=== PATIENT | male | born 1965 | race Caucasian/White ===

== ENCOUNTER → 2017-03-14 | Outpatient (REF) | payer MEDICARE, MEDICAID ==
[2017-03-14 16:27] LABS: ALBUMIN 3.5 GM/DL (3.2-5.2); ALBUMIN/GLOBULIN RATIO 0.73 (1.00-1.93); ALKALINE PHOSPHATASE 96 U/L (45-117); ALT/SGPT 36 U/L (12-78); ANION GAP 8 MEQ/L (8-16); AST/SGOT 30 U/L (15-37); BILIRUBIN,TOTAL 0.5 MG/DL (0.2-1.0); BLOOD UREA NITROGEN 11 MG/DL (7-18); CALCIUM LEVEL 8.9 MG/DL (8.5-10.1); CARBON DIOXIDE LEVEL 28 MEQ/L (21-32); CHLORIDE LEVEL 105 MEQ/L (98-107); CHOLESTEROL LEVEL 177 MG/DL (<200); CREATININE FOR GFR 0.82 MG/DL (0.70-1.30); GLOMERULAR FILTRATION RATE > 60.0 (>56); GLUCOSE, FASTING 85 MG/DL (70-105); POTASSIUM SERUM 3.8 MEQ/L (3.5-5.1); SODIUM LEVEL 141 MEQ/L (136-145); TOTAL PROTEIN 8.3 GM/DL (6.4-8.2); TRIGLYCERIDES LEVEL 163 MG/DL (<150)
[2017-03-14 19:21] LABS: CALCIUM OXALATE CRYSTALS SMALL
[2017-03-18 14:18] LABS: %CD3+CD4+CD8+ 1.8 % (Not Estab.); %CD3+CD4+CD8- 1.5 % (Not Estab.); %CD3+CD4-CD8+ 76.4 % (Not Estab.); %CD3+CD4-CD8- 3.7 % (Not Estab.); ABS CD3+CD4+CD8+ 20 /uL (Not Estab.); ABS CD3+CD4+CD8- 17 /uL (Not Estab.); ABS CD3+CD4-CD8+ 840 /uL (Not Estab.); ABS CD3+CD4-CD8- 41 /uL (Not Estab.); CD4/CD8 NYSDOH RATIO 0.02 (Not Estab.); Eosinophils 5 % (.); HCT 46.8 % (37.5-51.0); HGB 15.4 g/dL (12.6-17.7); Monocytes 14 % (.); Neutrophils 42 % (.); T PALLIDUM ANTIBODIES Positive (Negative); T PALLIDUM IMMUNOBLOT Positive (Negative); WBC 2.8 x10E3/uL (3.4-10.8)
[2017-04-08 07:28] LABS: log10 HIV-1 RNA 6.041
[2017-04-08 07:29] LABS: Genotype Assay SEE SEPARATE REPORT
== END ==
LOC: M SFHCPLAZ 12:59
PROVIDERS: ATTEND Internal Medicine Infectious Disease
DX: B20 Human immunodeficiency virus [HIV] disease (principal); Z13.220 Encounter for screening for lipoid disorders; L40.50 Arthropathic psoriasis, unspecified; F90.9 Attention-deficit hyperactivity disorder, unspecified type; Z72.0 Tobacco use; R60.0 Localized edema; Z79.891 Long term (current) use of opiate analgesic; Z79.899 Other long term (current) drug therapy
CPT/HCPCS: 36415; 80053; 80061; 81001; 86360; 86592; 86780; 87491; 87536; 87591; G0463

== ENCOUNTER → 2017-04-14 | Outpatient (REF) | payer MEDICARE, MEDICAID ==
[~2017-04-14] MED LIST: ACIT1CAP2 PO; ADDE10CA3 PO; ADDE1TAB14 PO; AKWASOL OU; AMLO10TA2 PO; ATOR40TA75 PO; DOXY100T2 PO; ESCI20TA PO; MELO15TA4 PO; PERC7.5T11 PO; PRED10TA2 PO; STRITAB2 PO
== END ==
LOC: M SFHCPLAZ 17:14
PROVIDERS: ATTEND Internal Medicine Infectious Disease
DX: L02.512 Cutaneous abscess of left hand (principal)
CPT/HCPCS: 87070; 87077; 87186; 87205; G0463

== ENCOUNTER → 2017-05-12 | Outpatient (REF) | payer MEDICARE, MEDICAID ==
[2017-05-12 15:50] LABS: ALBUMIN 3.6 GM/DL (3.2-5.2); ALBUMIN/GLOBULIN RATIO 0.78 (1.00-1.93); ALKALINE PHOSPHATASE 84 U/L (45-117); ALT/SGPT 22 U/L (12-78); ANION GAP 4 MEQ/L (8-16); AST/SGOT 21 U/L (15-37); BILIRUBIN,TOTAL 0.9 MG/DL (0.2-1.0); BLOOD UREA NITROGEN 13 MG/DL (7-18); CALCIUM LEVEL 8.8 MG/DL (8.5-10.1); CARBON DIOXIDE LEVEL 31 MEQ/L (21-32); CHLORIDE LEVEL 103 MEQ/L (98-107); CREATININE FOR GFR 0.93 MG/DL (0.70-1.30); GLOMERULAR FILTRATION RATE > 60.0 (>56); GLUCOSE, FASTING 90 MG/DL (70-105); POTASSIUM SERUM 3.9 MEQ/L (3.5-5.1); SODIUM LEVEL 138 MEQ/L (136-145); TOTAL PROTEIN 8.2 GM/DL (6.4-8.2)
[2017-05-14 15:14] LABS: %CD3+CD4+CD8+ 1.5 % (Not Estab.); %CD3+CD4+CD8- 2.2 % (Not Estab.); %CD3+CD4-CD8+ 72.8 % (Not Estab.); %CD3+CD4-CD8- 5.9 % (Not Estab.); ABS CD3+CD4+CD8+ 9 /uL (Not Estab.); ABS CD3+CD4+CD8- 13 /uL (Not Estab.); ABS CD3+CD4-CD8+ 437 /uL (Not Estab.); ABS CD3+CD4-CD8- 35 /uL (Not Estab.); CD4/CD8 NYSDOH RATIO 0.03 (Not Estab.); Eosinophils 6 % (.); HCT 45.1 % (37.5-51.0); HGB 15.4 g/dL (12.6-17.7); Monocytes 12 % (.); Neutrophils 64 % (.); WBC 3.8 x10E3/uL (3.4-10.8)
== END ==
LOC: M SFHCPLAZ 13:40
PROVIDERS: ATTEND Internal Medicine Infectious Disease
DX: B20 Human immunodeficiency virus [HIV] disease (principal)
CPT/HCPCS: 80053; 86360; 87536; G0463

== ENCOUNTER 2017-07-16 12:24 | Inpatient (IN) | payer MEDICAID, MEDICARE ==
[~2017-07-16] VITALS: Ht 182.9 cm; Wt 91.0 kg
--- NOTE | 2017-07-16 13:20 | REP ---
Clinical: Altered mental status. Cerebrovascular accident . Comparison: None . Findings: The ventricles, sulci, and cisterns are normal in position and appearance. Crook-white differentiation is maintained. No acute intracranial hemorrhage, mass/mass effect, pathology or trauma/injury. No evidence for acute infarction. No extra-axial fluid collection. Calvarium is intact. Paranasal sinuses and mastoid air cells are clear. Impression: Normal noncontrast head CT. No evidence for acute intracranial pathology or trauma/injury. Signed by Justin Galloway MD 07/16/2017 01:11 P
--- NOTE | 2017-07-16 13:21 | REP ---
Clinical: Altered mental status. Possible cerebrovascular accident . Comparison: 02/16/2017 . Technique: PA only. Findings: The mediastinum and cardiac silhouette are normal. The lung stoll are clear and without acute consolidation, effusion, or pneumothorax. The skeletal structures are intact and normal. Impression: 1. No acute cardiopulmonary process. Signed by Justin Galloway MD 07/16/2017 01:12 P
[2017-07-16 13:40] LABS: BASO % 0.7 % (0.0-1.0); EOS # 0.3 K/mm3 (0.0-0.50); EOS % 5.8 % (0.0-3.0); LARGE UNSTAINED CELL # 0.1 K/mm3 (0.0-0.4); LARGE UNSTAINED CELL % 2.7 % (0.0-4.0); LYMPH # 0.9 K/mm3 (1.5-4.5); LYMPH % 16.7 % (24.0-44.0); MEAN CORPUSCULAR HEMOGLOBIN 31.4 pg (27.0-33.0); MEAN CORPUSCULAR HGB CONC 34.2 g/dl (32.0-36.5); MEAN CORPUSCULAR VOLUME 91.7 fl (80.0-96.0); MONO # 0.3 K/mm3 (0.0-0.8); MONO % 6.1 % (0.0-5.0); NEUTROPHILS # 3.7 K/mm3 (1.8-7.7); NEUTROPHILS % 67.9 % (36.0-66.0); PLATELET COUNT, AUTOMATED 195 k/mm3 (150-450); RED CELL DISTRIBUTION WIDTH 14.1 % (11.5-14.5); WHITE BLOOD COUNT 5.4 K/mm3 (4.0-10.0)
[2017-07-16 13:47] LABS: INR 1.04
[2017-07-16] MEDS ORDERED: PERC7.5T11 PO (13:48)
[2017-07-16] MEDS ORDERED: ESCI20TA PO (13:48)
[2017-07-16] MEDS ORDERED: ACIT1CAP2 PO (13:48)
[2017-07-16] MEDS ORDERED: STRITAB2 PO (13:48)
[2017-07-16] MEDS ORDERED: ATOR40TA75 PO (13:48)
[2017-07-16] MEDS ORDERED: MELO15TA4 PO (13:48)
[2017-07-16] MEDS ORDERED: ADDE10CA3 PO (13:48)
[2017-07-16] MEDS ORDERED: ADDE1TAB14 PO (13:48)
[2017-07-16 14:04] LABS: ALBUMIN 3.6 GM/DL (3.2-5.2); ALBUMIN/GLOBULIN RATIO 0.63 (1.00-1.93); ALKALINE PHOSPHATASE 86 U/L (45-117); ALT/SGPT 23 U/L (12-78); ANION GAP 9 MEQ/L (8-16); AST/SGOT 13 U/L (15-37); BILIRUBIN,DIRECT 0.2 MG/DL (0.0-0.2); BILIRUBIN,TOTAL 0.7 MG/DL (0.2-1.0); BLOOD UREA NITROGEN 21 MG/DL (7-18); CALCIUM LEVEL 9.1 MG/DL (8.5-10.1); CARBON DIOXIDE LEVEL 31 MEQ/L (21-32); CHLORIDE LEVEL 100 MEQ/L (98-107); CREATININE FOR GFR 0.92 MG/DL (0.70-1.30); GLOMERULAR FILTRATION RATE > 60.0 (>56); GLUCOSE, FASTING 115 MG/DL (70-105); POTASSIUM SERUM 3.5 MEQ/L (3.5-5.1); SODIUM LEVEL 140 MEQ/L (136-145); TOTAL PROTEIN 9.3 GM/DL (6.4-8.2)
[2017-07-16] MEDS ORDERED: ACETAMINOPHEN 325 MG TAB As Ordered ONE (15:22)
[2017-07-16] MEDS ORDERED: ACETAMINOPHEN TAB 650MG DOSE (2X325MG) PO ONE (15:30)
[2017-07-16] MEDS ORDERED: ONDANSETRON 4MG/2ML VIAL (J2405) IV PRN (15:45)
--- NOTE | 2017-07-16 16:36 | HPEPDOC ---
General Date of Admission Jul 16, 2017 at 15:32 Attending Physician: FABBY LEON MD Chief Complaint The patient is a 52-year-old male admitted with a reason for visit of Facial Weakness. Timing/Duration: Day(s) (5) History of Present Illness 52-year-old male with past medical history of psoriatic arthritis, dyslipidemia , depression, and HIV who follows with Dr. Chapa as an outpatient presented to the ER with a chief complaint of weakness of his facial muscles over the last 5 days. The patient states that during this time he has had difficulty moving the muscles on his face. He reports that he has been unable to wrinkle his brow, smile, or close his eyes. He denies any acute complaints of visual blurring, slurring of speech, numbness or tingling in any extremity, weakness in any extremity, or any other acute neurological deficits. The patient does note that he does have exposure to ticks, as he regularly walks his dog through the booth. However, he is denying noting any ticks on his body. In addition, the patient denies any complaints of fevers, chills, chest pain, palpitations, shortness of breath, any new rashes, abdominal pain, or any nausea/vomiting. In the ER, a CT scan of the head revealed no acute findings. The patient's CBC and CMP revealed no acute findings to explain his current clinical presentation. A call was placed to neurology and ID in the ER, and we will obtain an MRI of the brain without followed by with contrast. In addition, Lyme studies have been sent out, and the patient will be empirically started on doxycycline. The patient will be admitted to the hospitalist service for further evaluation and management. Home Medications Scheduled (Stribild [phone] mg) 1 Tab Tab, 1 TAB PO DAILY, (Reported) (Acitretin) 25 Mg Cap, 50 MG PO DAILY, (Reported) Amphetamine/Dextroamphetamine (Adderall Xr 10 mg) 1 Cap Cap, 1 CAP PO DAILY, ( Reported) PT STATES, TAKES WITH 10MG TAB QAM, UNABLE TO VERIFY WITH PHARMACY Amphetamine/Dextroamphetamine (Adderall 5 mg) 1 Tab Tab, 10 MG PO DAILY, ( Reported) PT STATES, TAKES WITH XR 10MG QAM, UNABLE TO VERIFY WITH PHARMACY Atorvastatin Calcium (Atorvastatin Calcium) 40 Mg Tab, 40 MG PO DAILY, (Reported ) Escitalopram Oxalate (Escitalopram Oxalate) 20 Mg Tab, 20 MG PO DAILY, (Reported ) Meloxicam (Meloxicam) 15 Mg Tab, 15 MG PO DAILY, (Reported) Scheduled PRN Oxycodone/Acetaminophen (Percocet 7.5-325 mg) 1 Tab Tab, 1 TAB PO Q6H PRN for PAIN, (Reported) Allergies Coded Allergies: Penicillins (Verified Allergy, Severe, DIFFICULTY BREATHING, 07/16/17) Penicillins Cross Reactors (Verified Allergy, Severe, DIFFICULTY BREATHING , 07/16/17) Past Medical History Medical History As noted in HPI. Surgical History LEFT THUMB SURGERY FOR HER PSORIASIS AND ARTHROPATHY WITH DISLOCATION FIFTH TOE SURGERY BILATERALLY HE HAD ABOUT 5 SURGERIES IN THE PAST YEAR 2008 I&D OF RIGHT ARM ABSCESS 2003 L5-S1 LAMINECTOMY FOR LARGE DISC HERNIATION DR ALEX 06/29/2011 LEFT TOE AND RT THUMB FUSION 2013 RIGHT THUMB ARTHRODESIS 11/12/2014 Obtained from outpatient charting Family History Significant Family History: No pertinent family hx Social History * Smoker: former Smoker Alcohol: Denies Drugs: denies Review of Symptoms Other systems 10 point review of systems negative unless otherwise specified in HPI. Physical Examination General Exam: Positive: Alert, Cooperative, No Acute Distress Eye Exam: Positive: PERRLA, EOMI, Negative: Sclera icteric, Ptosis ENT Exam: Positive: Atraumatic, Mucous membr. moist/pink Neck Exam: Negative: JVD Chest Exam: Positive: Clear to auscultation, Normal air movement Heart Exam: Positive: Rate Normal, Normal S1, Normal S2 Abdomen Exam: Positive: Soft, Negative: Tenderness Extremity Exam: Negative: Tenderness, Swelling Neuro Exam: Positive: Normal Speech, Strength at 5/5 X4 ext, Sensation Intact, Other (facial muscle weakness, patient unable to close eyes, wrinkle brow, or smile/frown) Psych Exam: Positive: Oriented x 3 Vital Signs Vital Signs Date Time Temp Pulse Resp B/P (MAP) Pulse Ox O2 Delivery O2 Flow Rate FiO2 07/16/17 15:00 162/106 (124) 07/16/17 14:09 92 94 07/16/17 12:24 98.5 16 Room Air Laboratory Data Labs 24H Laboratory Tests 2 07/16/17 13:21: White Blood Count 5.4, Red Blood Count 5.70, Hemoglobin 17.9, Hematocrit 52.3H, Mean Corpuscular Volume 91.7, Mean Corpuscular Hemoglobin 31.4, Mean Corpuscular Hemoglobin Concent 34.2, Red Cell Distribution Width 14.1, Platelet Count 195, Neutrophils (%) (Auto) 67.9H, Lymphocytes (%) (Auto) 16.7L, Monocytes (%) (Auto) 6.1H, Eosinophils (%) (Auto) 5.8H, Basophils (%) (Auto) 0.7 , Neutrophils # (Auto) 3.7, Lymphocytes # (Auto) 0.9L, Monocytes # (Auto) 0.3, Eosinophils # (Auto) 0.3, Basophils # (Auto) 0.0, Large Unclassified Cells % 2.7 , Large Unclassified Cells # 0.1, Prothrombin Time 13.7, Prothromb Time International Ratio 1.04, Activated Partial Thromboplast Time 26.9, Anion Gap 9 , Glomerular Filtration Rate > 60.0, Lactic Acid Level 1.2, Calcium Level 9.1, Aspartate Amino Transf (AST/SGOT) 13L, Alanine Aminotransferase (ALT/SGPT) 23, Alkaline Phosphatase 86, Total Bilirubin 0.7, Direct Bilirubin 0.2, Total Creatine Kinase 17L, Creatine Kinase MB 1.0, Creatine Kinase MB Relative Index 5.88H, Troponin I < 0.02, Total Protein 9.3H, Albumin 3.6, Albumin/Globulin Ratio 0.63L, Lipase 193 07/16/17 14:47: Urine Appearance HAZY, Urine Color PHILLIP, Urine pH 5.0, Urine Specific [place] 1.021, Urine Protein NEGATIVE, Urine Glucose (UA) NEGATIVE, Urine Ketones NEGATIVE, Urine Urobilinogen 0.2, Urine Bilirubin NEGATIVE, Urine Leukocyte Esterase NEGATIVE, Urine Blood NEGATIVE, Urine Nitrite NEGATIVE, Urine WBC (Auto ) 3, Urine RBC (Auto) 4H, Urine Hyaline Casts (Auto) 2, Urine Bacteria (Auto) NEGATIVE, Urine Squamous Epithelial Cells 0, Urine Mucus (Auto) LARGE, Urine Sperm (Auto) CBC/BMP Laboratory Tests 07/16/17 13:21 Red Blood Count 5.70, Mean Corpuscular Volume 91.7, Mean Corpuscular Hemoglobin 31.4, Mean Corpuscular Hemoglobin Concent 34.2, Red Cell Distribution Width 14.1 , Neutrophils (%) (Auto) 67.9 H, Lymphocytes (%) (Auto) 16.7 L, Monocytes (%) ( Auto) 6.1 H, Eosinophils (%) (Auto) 5.8 H, Basophils (%) (Auto) 0.7, Neutrophils # (Auto) 3.7, Lymphocytes # (Auto) 0.9 L, Monocytes # (Auto) 0.3, Eosinophils # (Auto) 0.3, Basophils # (Auto) 0.0 Microbiology Microbiology 07/16/17 Blood Culture, Received Pending 07/16/17 Urine Culture, Received Pending Plan / VTE VTE Prophylaxis Ordered?: Yes Plan Plan Facial Muscle Weakness possibly 2/2 Lyme's Disease vs Underlying CMV in patient with Hx of HIV CT Scan of the Head with no acute findings MRI w/o followed by with Contrast ordered to delineate other possible causes Neuro and ID input in the ER appreciated Lyme study sent--we will empirically start treatment with Doxycycline BID No other acute focal neurological abnormalities appreciated Cont Neuro-checks Hx of HIV Cont current regimen follows with Dr. Chapa of ID as an outpatient Dyslipidemia Continue statin Depression/anxiety Continue Lexapro History of psoriatic arthritis Continue meloxicam DVT prophylaxis Lovenox SC The patient will be admitted to the service of Dr. Leon, who will begin to follow the patient on 07/17/17 at 7 AM. JIMENA ALFRED MD Jul 16, 2017 16:36
[2017-07-16 17:47] VITALS: BP 138/88
[2017-07-16] MEDS: ESCITALOPRAM OXALATE 10 MG TAB (LEXAPRO) PO SCH (18:41)
[2017-07-16] MEDS ORDERED: BISACODYL 5 MG TAB PO PRN (20:00)
[2017-07-16] MEDS: MELOXICAM (MOBIC) 7.5 MG TAB PO SCH (20:19)
[2017-07-16] MEDS: DOXYCYCLINE HYCLATE 100 MG TAB PO SCH (20:19)
[2017-07-16] MEDS: ENOXAPARIN 40 MG/0.4 ML SYRINGE (J1650) SC SCH (20:20)
[2017-07-16 20:25] VITALS: BP 119/79
[2017-07-16] MEDS: PERCOCET 5MG/325MG TAB PO PRN (21:50)
[2017-07-17] VITALS (7 sets, daily range): BP systolic 130–190; BP diastolic 89–120
[2017-07-17] MEDS: ACETAMINOPHEN TAB 650MG DOSE (2X325MG) PO PRN ×2 (00:35→10:36)
[2017-07-17] MEDS: PERCOCET 5MG/325MG TAB PO PRN ×4 (02:02→18:45)
[2017-07-17 06:41] LABS: BASO % 0.4 % (0.0-1.0); EOS # 0.3 K/mm3 (0.0-0.50); EOS % 4.7 % (0.0-3.0); LARGE UNSTAINED CELL # 0.1 K/mm3 (0.0-0.4); LARGE UNSTAINED CELL % 2.3 % (0.0-4.0); LYMPH # 1.3 K/mm3 (1.5-4.5); LYMPH % 22.4 % (24.0-44.0); MEAN CORPUSCULAR HEMOGLOBIN 31.7 pg (27.0-33.0); MEAN CORPUSCULAR HGB CONC 35.2 g/dl (32.0-36.5); MEAN CORPUSCULAR VOLUME 90.2 fl (80.0-96.0); MONO # 0.5 K/mm3 (0.0-0.8); NEUTROPHILS # 3.7 K/mm3 (1.8-7.7); NEUTROPHILS % 62.2 % (36.0-66.0); PLATELET COUNT, AUTOMATED 195 k/mm3 (150-450); WHITE BLOOD COUNT 5.9 K/mm3 (4.0-10.0)
[2017-07-17] MEDS ORDERED: MORPHINE 2 MG/ML 1ML SYRINGE IV ONE (06:45)
[2017-07-17 07:04] LABS: ALBUMIN 3.3 GM/DL (3.2-5.2); ALBUMIN/GLOBULIN RATIO 0.58 (1.00-1.93); ALKALINE PHOSPHATASE 84 U/L (45-117); ALT/SGPT 25 U/L (12-78); ANION GAP 8 MEQ/L (8-16); AST/SGOT 17 U/L (15-37); BILIRUBIN,TOTAL 0.6 MG/DL (0.2-1.0); BLOOD UREA NITROGEN 23 MG/DL (7-18); CALCIUM LEVEL 9.1 MG/DL (8.5-10.1); CARBON DIOXIDE LEVEL 27 MEQ/L (21-32); CHLORIDE LEVEL 103 MEQ/L (98-107); CREATININE FOR GFR 0.66 MG/DL (0.70-1.30); GLOMERULAR FILTRATION RATE > 60.0 (>56); GLUCOSE, FASTING 105 MG/DL (70-105); MAGNESIUM LEVEL 2.2 MG/DL (1.8-2.4); POTASSIUM SERUM 3.7 MEQ/L (3.5-5.1); SODIUM LEVEL 138 MEQ/L (136-145)
--- NOTE | 2017-07-17 07:33 | ECGEPIP ---
Stationary ECG Study [facility] - ED Test Date: 2017-07-16 Pat Name: ROBINA ZAVALA Department: Room: - Gender: M Jig Hand: rn : 1965 Requested By: KESHA Perez Order Number: [id number] Reading MD: Didi Pereira Measurements Intervals [place] Rate: 99 P: 52 CA: 169 QRS: -37 QRSD: 118 T: 42 QT: 363 QTc: 467 Interpretive Statements SINUS RHYTHM INFERIOR MYOCARDIAL INFARCTION, PROBABLY OLD POSSIBLE ANTEROLATERAL MYOCARDIAL INFARCTION, OF INDETERMINATE AGE BASELINE ARTIFACT LIMITS INTERPRETATION NO PRIOR FOR COMPARISON Electronically Signed On 07-17-2017 7:33:10 EDT by Didi Pereira
--- NOTE | 2017-07-17 08:04 | REP ---
Clinical: Facial weakness. History of HIV disease. Technique: Standard pre and postcontrast MRI sequencing of the brain using 16 ml of ProHance gadolinium based contrast material. Findings: Crook-white differentiation and cerebral as well as cerebellar parenchyma appears normal and without mass/mass effect, hemorrhage, or abnormal enhancing mass/lesion. Midbrain and midline structures are intact, symmetric and unremarkable. The ventricles, sulci, and cisterns are symmetric and normal. No extra-axial collection is identified. Postcontrast images best demonstrate normal, symmetric intracranial vasculature without obvious vascular abnormality. The calvarium is intact. Possible mucocele in the right maxillary sinus. Diffusion weighted images and corresponding ADC sequence appear normal and without evidence for acute infarction. Impression: Normal pre and postcontrast MRI of the brain. Signed by Justin Galloway MD 07/17/2017 07:55 A
[2017-07-17] MEDS ORDERED: MELOXICAM (MOBIC) 7.5 MG TAB PO SCH (09:00)
[2017-07-17] MEDS ORDERED: predniSONE 20 MG TAB PO SCH ×2 (09:00→16:09)
[2017-07-17] MEDS: ADDERALL 5 MG TAB PO SCH ×2 (09:26→12:30)
[2017-07-17] MEDS: MELOXICAM (MOBIC) 7.5 MG TAB PO SCH (09:26)
[2017-07-17] MEDS: ESCITALOPRAM OXALATE 10 MG TAB (LEXAPRO) PO SCH (09:26)
[2017-07-17] MEDS: DOXYCYCLINE HYCLATE 100 MG TAB PO SCH ×2 (09:26→20:45)
[2017-07-17] MEDS: ATORVASTATIN 20 MG TAB PO SCH (09:26)
--- NOTE | 2017-07-17 10:39 | IPNPDOC ---
Subjective Date Seen The patient was seen on 07/17/17. Subjective Chief Complaint/HPI The patient is a 52-year-old male admitted with a reason for visit of Facial Weakness. Events since last encounter continues to have bilateral facial muscle weakness , unable to close eyes , had difficulty in eating coming out of the side of the mouth. no difficulty in swallowing , has some difficulty in speaking , no weakness of extremities. No difficulty in walking , no bowel or bladder abnormalities. Objective Physical Examination General Exam: Positive: Alert, Cooperative, No Acute Distress Eye Exam: Positive: PERRLA, EOMI, Negative: Sclera icteric, Ptosis ENT Exam: Positive: Atraumatic, Mucous membr. moist/pink Neck Exam: Negative: JVD Chest Exam: Positive: Clear to auscultation, Normal air movement Heart Exam: Positive: Rate Normal, Normal S1, Normal S2 Abdomen Exam: Positive: Soft, Negative: Tenderness Extremity Exam: Negative: Tenderness, Swelling Neuro Exam: Positive: Normal Speech, Strength at 5/5 X4 ext, Sensation Intact, Other (facial muscle weakness, patient unable to close eyes, wrinkle brow, or smile/frown) Psych Exam: Positive: Oriented x 3 Assessment /Plan Problems (1) Facial weakness Status: Acute Problem Text: MRI brain negative lyme titer pending started on doxycycline. Neuro to see. eay patches (2) Hyperlipidemia Status: Chronic Problem Text: continue statin (3) Psoriatic arthritis Status: Chronic Problem Text: continue home med acetretin (4) Narcotic dependence Status: Chronic Problem Text: will continue on home medications. (5) HIV (human immunodeficiency virus infection) Status: Chronic Problem Text: continue home meds. Plan/VTE VTE Prophylaxis Ordered?: Yes VS, I&O, 24H, Fishbone Vital Signs/I&O Vital Signs Date Time Temp Pulse Resp B/P (MAP) Pulse Ox O2 Delivery O2 Flow Rate FiO2 07/17/17 06:59 18 07/17/17 06:30 164/118 (133) 07/17/17 06:15 97.1 80 97 Room Air I&O- Last 24 Hours up to 6 AM 07/17/17 06:00 Intake Total 1400 ml Balance 1400 ml Laboratory Data 24H LABS Laboratory Tests 2 07/16/17 13:21: White Blood Count 5.4, Red Blood Count 5.70, Hemoglobin 17.9, Hematocrit 52.3H, Mean Corpuscular Volume 91.7, Mean Corpuscular Hemoglobin 31.4, Mean Corpuscular Hemoglobin Concent 34.2, Red Cell Distribution Width 14.1, Platelet Count 195, Neutrophils (%) (Auto) 67.9H, Lymphocytes (%) (Auto) 16.7L, Monocytes (%) (Auto) 6.1H, Eosinophils (%) (Auto) 5.8H, Basophils (%) (Auto) 0.7 , Neutrophils # (Auto) 3.7, Lymphocytes # (Auto) 0.9L, Monocytes # (Auto) 0.3, Eosinophils # (Auto) 0.3, Basophils # (Auto) 0.0, Large Unclassified Cells % 2.7 , Large Unclassified Cells # 0.1, Prothrombin Time 13.7, Prothromb Time International Ratio 1.04, Activated Partial Thromboplast Time 26.9, Anion Gap 9 , Glomerular Filtration Rate > 60.0, Lactic Acid Level 1.2, Calcium Level 9.1, Aspartate Amino Transf (AST/SGOT) 13L, Alanine Aminotransferase (ALT/SGPT) 23, Alkaline Phosphatase 86, Total Bilirubin 0.7, Direct Bilirubin 0.2, Total Creatine Kinase 17L, Creatine Kinase MB 1.0, Creatine Kinase MB Relative Index 5.88H, Troponin I < 0.02, Total Protein 9.3H, Albumin 3.6, Albumin/Globulin Ratio 0.63L, Lipase 193 07/16/17 14:47: Urine Appearance HAZY, Urine Color PHILLIP, Urine pH 5.0, Urine Specific [place] 1.021, Urine Protein NEGATIVE, Urine Glucose (UA) NEGATIVE, Urine Ketones NEGATIVE, Urine Urobilinogen 0.2, Urine Bilirubin NEGATIVE, Urine Leukocyte Esterase NEGATIVE, Urine Blood NEGATIVE, Urine Nitrite NEGATIVE, Urine WBC (Auto ) 3, Urine RBC (Auto) 4H, Urine Hyaline Casts (Auto) 2, Urine Bacteria (Auto) NEGATIVE, Urine Squamous Epithelial Cells 0, Urine Mucus (Auto) LARGE, Urine Sperm (Auto) 07/17/17 06:03: White Blood Count 5.9, Red Blood Count 5.34, Hemoglobin 16.9, Hematocrit 48.1, Mean Corpuscular Volume 90.2, Mean Corpuscular Hemoglobin 31.7, Mean Corpuscular Hemoglobin Concent 35.2, Red Cell Distribution Width 14.0, Platelet Count 195, Neutrophils (%) (Auto) 62.2, Lymphocytes (%) (Auto) 22.4L, Monocytes (%) (Auto) 8.0H, Eosinophils (%) (Auto) 4.7H, Basophils (%) (Auto) 0.4, Neutrophils # (Auto) 3.7, Lymphocytes # (Auto) 1.3L, Monocytes # (Auto) 0.5, Eosinophils # (Auto) 0.3, Basophils # (Auto) 0.0, Large Unclassified Cells % 2.3 , Large Unclassified Cells # 0.1, Anion Gap 8, Glomerular Filtration Rate > 60.0 , Calcium Level 9.1, Aspartate Amino Transf (AST/SGOT) 17, Alanine Aminotransferase (ALT/SGPT) 25, Alkaline Phosphatase 84, Total Bilirubin 0.6, Total Protein 9.0H, Albumin 3.3, Albumin/Globulin Ratio 0.58L, Blood Urea Nitrogen 23H, Creatinine 0.66L, Sodium Level 138, Potassium Level 3.7, Chloride Level 103, Carbon Dioxide Level 27, Magnesium Level 2.2 CBC/BMP Laboratory Tests 07/16/17 13:21 Red Blood Count 5.70, Mean Corpuscular Volume 91.7, Mean Corpuscular Hemoglobin 31.4, Mean Corpuscular Hemoglobin Concent 34.2, Red Cell Distribution Width 14.1 , Neutrophils (%) (Auto) 67.9 H, Lymphocytes (%) (Auto) 16.7 L, Monocytes (%) ( Auto) 6.1 H, Eosinophils (%) (Auto) 5.8 H, Basophils (%) (Auto) 0.7, Neutrophils # (Auto) 3.7, Lymphocytes # (Auto) 0.9 L, Monocytes # (Auto) 0.3, Eosinophils # (Auto) 0.3, Basophils # (Auto) 0.0 07/17/17 06:03 Red Blood Count 5.34, Mean Corpuscular Volume 90.2, Mean Corpuscular Hemoglobin 31.7, Mean Corpuscular Hemoglobin Concent 35.2, Red Cell Distribution Width 14.0 , Neutrophils (%) (Auto) 62.2, Lymphocytes (%) (Auto) 22.4 L, Monocytes (%) ( Auto) 8.0 H, Eosinophils (%) (Auto) 4.7 H, Basophils (%) (Auto) 0.4, Neutrophils # (Auto) 3.7, Lymphocytes # (Auto) 1.3 L, Monocytes # (Auto) 0.5, Eosinophils # (Auto) 0.3, Basophils # (Auto) 0.0, Calcium Level 9.1, Aspartate Amino Transf (AST/SGOT) 17, Alanine Aminotransferase (ALT/SGPT) 25, Alkaline Phosphatase 84, Total Bilirubin 0.6, Total Protein 9.0 H, Albumin 3.3 Microbiology Microbiology 07/16/17 Blood Culture, Received Pending 07/16/17 Urine Culture - Final, Complete FABBY FLOYD MD Jul 17, 2017 10:39
[2017-07-17] MEDS ORDERED: cloNIDine 0.2 MG TAB PO ONE (15:00)
--- NOTE | 2017-07-17 15:58 | CR ---
DATE OF CONSULTATION: 07/17/2017 CONSULTATION REPORT FOR: Dr. Abby Leon REASON FOR CONSULTATION: Bilateral facial weakness. HISTORY OF PRESENT ILLNESS: Bear Dias is a 52-year-old man with history of HIV, dyslipidemia, psoriasis, and depression who was at his baseline state of health until two weeks ago when he had developed severe worsening of his chronic low back pain. Back pain was 10/10 in intensity and he was unable to sleep. Five days ago, he developed left-sided facial weakness and had difficulty closing his left eye and moving lower and upper parts of his left side of face. Yesterday, he developed right-sided facial weakness as well. He currently cannot close either of his eyes. He has difficulty smiling. He has decreased taste sensation. He complains of severe back pain. He denies numbness or weakness of his arms and legs. He denies any visual problems, slurred speech, dysphagia, dysarthria, diplopia, or urinary incontinence. He denies any falls or loss of consciousness. He denies any seizures. He denies any imbalance or difficulty walking. He states that he does have exposure to ticks as he regularly walks his dog through [place]. He denies noticing any ticks on his body. He had mild rash on his right arm and both sides of face, but is not sure whether it is related to his psoriasis. DIAGNOSTIC STUDIES: His CBC and complete metabolic profile were within normal limits. I was called about this patient yesterday, so we checked his Lyme antibody which can cause bilateral facial weakness but Lyme antibody is pending. He was started on doxycycline after his Lyme titer was drawn. His MRI scan of brain with and without contrast was reportedly unremarkable. PAST MEDICAL HISTORY: 1. HIV positive status. 2. Lumbosacral laminectomy in 2010. 3. Left toe and right thumb fusion. 4. Right thumb surgery. 5. Psoriasis. 6. Dyslipidemia. 7. Depression. HOME MEDICATIONS: - Stribild one tablet by mouth daily - acitretin 50 mg by mouth daily - Adderall XR 10 mg by mouth in the morning and 5 mg by mouth in the morning - Lipitor 40 mg by mouth daily - Lexapro 20 mg by mouth daily - Mobic 15 mg by mouth daily - Percocet 7.5/325 mg by mouth every six hours as needed ALLERGIES: PENICILLIN. SOCIAL HISTORY: He is a former smoker. He denies alcohol or illicit drugs. FAMILY HISTORY: Unremarkable and noncontributory. REVIEW OF SYSTEMS: All systems were reviewed and were noncontributory, except as mentioned in the history of present illness. PHYSICAL EXAMINATION: Temperature 98.0, respiratory rate 18, pulse 80, blood pressure 170/104. HEART: Regular rate and rhythm. LUNGS: Clear to auscultation. ABDOMEN: Soft, nontender, nondistended. NEUROLOGIC EXAMINATION: The patient is awake, alert, oriented to place, person and time. Normal speech, comprehension and repetition. Extraocular muscles are intact. He has bilateral lower motor neuron trifacial weakness affecting bilateral forehead, eyes and lower face on both sides. Tongue and uvula are midline. He has 5/5 strength in all four extremities. Deep tendon flexes are 2 + throughout. Normal sensation to light touch, pinprick vibration, etc. Gait is normal. No dysmetria or ataxia. ASSESSMENT: 1. Bilateral lower motor neuron bilateral facial weakness. 2. There is suspicion and concern for Lyme disease which can cause facial diplegia. 3. History of HIV positive. PLAN: 1. Doxycycline 100 mg by mouth twice a day. 2. His Lyme antibody is pending. 3. Prednisone 60 mg by mouth daily and taper every two days by 20 mg until he finishes it in eight days. I have discussed with Dr. Abby Leon and she does not think there is any problem using prednisone for one week with his HIV positive status. 4. Eyedrops/artificial tears every two hours and at bedtime. 5. Follow with our office in one month after hospital discharge. CHRISTIE
[2017-07-17] MEDS ORDERED: POLYVINYL ALCOHOL OPHTH SOLN 15 ML(LIQUITEARS) OU PRN (16:00)
[2017-07-17] MEDS: POLYVINYL ALCOHOL OPHTH SOLN 15 ML(LIQUITEARS) OU SCH ×2 (16:31→20:45)
[2017-07-17] MEDS: predniSONE 20 MG TAB PO SCH (16:31)
[2017-07-17] MEDS: DOCUSATE SODIUM 100 MG CAP PO SCH (20:44)
[2017-07-17] MEDS: ENOXAPARIN 40 MG/0.4 ML SYRINGE (J1650) SC SCH (20:45)
[2017-07-17] MEDS: MIRALAX *UNIT DOSE* 17GM PACKET PO SCH (20:45)
[2017-07-18] MEDS: PERCOCET 5MG/325MG TAB PO PRN ×4 (01:10→20:51)
[2017-07-18 06:00] VITALS: BP 139/90
[2017-07-18 06:05] LABS: BASO % 0.2 % (0.0-1.0); EOS % 0.5 % (0.0-3.0); LARGE UNSTAINED CELL # 0.1 K/mm3 (0.0-0.4); LARGE UNSTAINED CELL % 0.7 % (0.0-4.0); LYMPH # 1.4 K/mm3 (1.5-4.5); LYMPH % 16.7 % (24.0-44.0); MEAN CORPUSCULAR HEMOGLOBIN 30.8 pg (27.0-33.0); MEAN CORPUSCULAR HGB CONC 33.4 g/dl (32.0-36.5); MEAN CORPUSCULAR VOLUME 92.1 fl (80.0-96.0); MONO # 0.3 K/mm3 (0.0-0.8); NEUTROPHILS # 6.2 K/mm3 (1.8-7.7); NEUTROPHILS % 77.9 % (36.0-66.0); PLATELET COUNT, AUTOMATED 199 k/mm3 (150-450); RED CELL DISTRIBUTION WIDTH 14.3 % (11.5-14.5)
[2017-07-18 06:29] LABS: ALBUMIN 3.2 GM/DL (3.2-5.2); ALBUMIN/GLOBULIN RATIO 0.62 (1.00-1.93); ALKALINE PHOSPHATASE 82 U/L (45-117); ALT/SGPT 19 U/L (12-78); ANION GAP 5 MEQ/L (8-16); AST/SGOT 12 U/L (15-37); BILIRUBIN,TOTAL 0.7 MG/DL (0.2-1.0); BLOOD UREA NITROGEN 22 MG/DL (7-18); CALCIUM LEVEL 9.1 MG/DL (8.5-10.1); CARBON DIOXIDE LEVEL 28 MEQ/L (21-32); CHLORIDE LEVEL 102 MEQ/L (98-107); CREATININE FOR GFR 0.73 MG/DL (0.70-1.30); GLOMERULAR FILTRATION RATE > 60.0 (>56); GLUCOSE, FASTING 108 MG/DL (70-105); POTASSIUM SERUM 4.5 MEQ/L (3.5-5.1); SODIUM LEVEL 135 MEQ/L (136-145); TOTAL PROTEIN 8.4 GM/DL (6.4-8.2)
[2017-07-18] MEDS: ATORVASTATIN 20 MG TAB PO SCH (08:06)
[2017-07-18] MEDS: MELOXICAM (MOBIC) 7.5 MG TAB PO SCH (08:06)
[2017-07-18] MEDS: DOCUSATE SODIUM 100 MG CAP PO SCH ×2 (08:06→20:05)
[2017-07-18] MEDS: DOXYCYCLINE HYCLATE 100 MG TAB PO SCH ×2 (08:06→20:05)
[2017-07-18] MEDS: ESCITALOPRAM OXALATE 10 MG TAB (LEXAPRO) PO SCH (08:06)
[2017-07-18] MEDS: ADDERALL 5 MG TAB PO SCH ×2 (08:06→12:10)
[2017-07-18] MEDS: POLYVINYL ALCOHOL OPHTH SOLN 15 ML(LIQUITEARS) OU SCH ×4 (08:07→20:05)
[2017-07-18] MEDS: predniSONE 20 MG TAB PO SCH (08:07)
[2017-07-18] MEDS: MIRALAX *UNIT DOSE* 17GM PACKET PO SCH ×2 (08:07→20:05)
--- NOTE | 2017-07-18 09:14 | IPNPDOC ---
Subjective Date Seen The patient was seen on 07/18/17. Subjective Chief Complaint/HPI The patient is a 52-year-old male admitted with a reason for visit of Facial Weakness. Events since last encounter Says back pain is better today and is able to move better , however no change in facial weakness. still cannot close his eyes properly . started on prednisone yesterday. Objective Physical Examination General Exam: Positive: Alert, Cooperative, No Acute Distress Eye Exam: Positive: PERRLA, EOMI, Negative: Sclera icteric, Ptosis ENT Exam: Positive: Atraumatic, Mucous membr. moist/pink Neck Exam: Negative: JVD Chest Exam: Positive: Clear to auscultation, Normal air movement Heart Exam: Positive: Rate Normal, Normal S1, Normal S2 Abdomen Exam: Positive: Soft, Negative: Tenderness Extremity Exam: Negative: Tenderness, Swelling Neuro Exam: Positive: Normal Speech, Strength at 5/5 X4 ext, Sensation Intact, Other (facial muscle weakness, patient unable to close eyes, wrinkle brow, or smile/frown) Psych Exam: Positive: Oriented x 3 Assessment /Plan Problems (1) Facial weakness Status: Acute Problem Text: Bilateral lower motor negative facial nerve palsy MRI brain negative lyme titer pending started on doxycycline. seen by neuro started on prednisone to follow up with them in 3 weeks. eye patches (2) Hyperlipidemia Status: Chronic Problem Text: continue statin (3) Psoriatic arthritis Status: Chronic Problem Text: continue home med acetretin percocet for pain control (4) Narcotic dependence Status: Chronic Problem Text: will continue on home medications. (5) HIV (human immunodeficiency virus infection) Status: Chronic Problem Text: continue home meds. Plan/VTE VTE Prophylaxis Ordered?: Yes VS, I&O, 24H, Fishbone Vital Signs/I&O Vital Signs Date Time Temp Pulse Resp B/P (MAP) Pulse Ox O2 Delivery O2 Flow Rate FiO2 07/18/17 08:42 18 07/18/17 06:00 98.0 67 139/90 (106) 96 07/18/17 01:40 Room Air I&O- Last 24 Hours up to 6 AM 07/18/17 06:00 Intake Total 1200 ml Output Total 0 ml Balance 1200 ml Laboratory Data 24H LABS Laboratory Tests 2 07/18/17 05:43: White Blood Count 8.0, Red Blood Count 5.16, Hemoglobin 15.9, Hematocrit 47.6, Mean Corpuscular Volume 92.1, Mean Corpuscular Hemoglobin 30.8, Mean Corpuscular Hemoglobin Concent 33.4, Red Cell Distribution Width 14.3, Platelet Count 199, Neutrophils (%) (Auto) 77.9H, Lymphocytes (%) (Auto) 16.7L, Monocytes (%) (Auto) 4.0, Eosinophils (%) (Auto) 0.5, Basophils (%) (Auto) 0.2, Neutrophils # (Auto) 6.2, Lymphocytes # (Auto) 1.4L, Monocytes # (Auto) 0.3, Eosinophils # (Auto) 0.0, Basophils # (Auto) 0.0, Large Unclassified Cells % 0.7 , Large Unclassified Cells # 0.1, Anion Gap 5L, Glomerular Filtration Rate > 60.0, Blood Urea Nitrogen 22H, Creatinine 0.73, Sodium Level 135L, Potassium Level 4.5#, Chloride Level 102, Carbon Dioxide Level 28, Calcium Level 9.1, Aspartate Amino Transf (AST/SGOT) 12L, Alanine Aminotransferase (ALT/SGPT) 19, Alkaline Phosphatase 82, Total Bilirubin 0.7, Total Protein 8.4H, Albumin 3.2, Albumin/Globulin Ratio 0.62L CBC/BMP Laboratory Tests 07/18/17 05:43 Red Blood Count 5.16, Mean Corpuscular Volume 92.1, Mean Corpuscular Hemoglobin 30.8, Mean Corpuscular Hemoglobin Concent 33.4, Red Cell Distribution Width 14.3 , Neutrophils (%) (Auto) 77.9 H, Lymphocytes (%) (Auto) 16.7 L, Monocytes (%) ( Auto) 4.0, Eosinophils (%) (Auto) 0.5, Basophils (%) (Auto) 0.2, Neutrophils # ( Auto) 6.2, Lymphocytes # (Auto) 1.4 L, Monocytes # (Auto) 0.3, Eosinophils # ( Auto) 0.0, Basophils # (Auto) 0.0, Calcium Level 9.1, Aspartate Amino Transf ( AST/SGOT) 12 L, Alanine Aminotransferase (ALT/SGPT) 19, Alkaline Phosphatase 82 , Total Bilirubin 0.7, Total Protein 8.4 H, Albumin 3.2 Microbiology Microbiology 07/16/17 Blood Culture - Preliminary, Resulted No growth after 24 hours . All specim... 07/16/17 Urine Culture - Final, Complete FABBY FLOYD MD Jul 18, 2017 09:14
[2017-07-18 14:00] VITALS: BP 157/97
--- NOTE | 2017-07-18 17:17 | CR ---
DATE OF CONSULTATION: 07/18/2017 Asked to consult by hospitalist for evaluation of bilateral muscle weakness in my patient with HIV. HISTORY OF PRESENT ILLNESS: Bear is a 52-year-old gentleman with a history of HIV AIDS who has been noncompliant in the past year with his HIV medications. He started feeling ill about 2 weeks prior to admission, around 07/02/2017, he was supposed to go to his nephew's green party and he was not able to go as he developed severe low back pain and thigh pains. The patient missed his appointment last week to see me for the same reason. He had fever and chills. He could not get out of bed. He took anti-inflammatories with some relief. Then he developed left-sided facial weakness, difficulty eating, then developed right-sided facial weakness about a couple days later. He was having some difficulty with slurred speech because of weakness of his facial muscles. He was having trouble closing his eyes. He had a mild headache. No upper or lower extremity weakness. No joint swelling. The patient denies having exposure to ticks but he walks his dog regularly and works in his garden. His dog had a tick bite. He had multiple insect bites on his lower extremities that were very itchy. He thought they were related to psoriasis. He came to our emergency room. His head CT was negative. MRI of the brain done with contrast also was negative. The patient was admitted for further workup and was started on doxycycline. PAST MEDICAL HISTORY: Significant for AIDS with recent history of noncompliance to medications, CD-4 less than 50, history of Mycobacterium kansasii, pneumonia, depression, dyslipidemia, psoriatic arthritis, COPD, tobacco abuse, attention deficit disorder, hyperlipidemia and depression. ALLERGIES: PENICILLIN. PAST SURGICAL HISTORY: Some surgeries bilaterally for psoriasis and dislocation, toe surgeries, incision and drainage (I and D) of right arm abscess for Mycobacterium kansasii, L5-S1 laminectomy for disc herniation done by Dr. Rey in 2010. FAMILY HISTORY: Non revealing, mother and father are both alive. SOCIAL HISTORY: He is a smoker. He has a history of alcohol use. He finished college in [employer], with a recent degree in [employer] but has not been able to find work. He drinks socially. He recently had lost a partner of HIV AIDS and had been very depressed and had not been taking his medication. REVIEW OF SYSTEMS: He had some fever and chills, severe low back pain and leg pain, recent insect bites, does not recall tick bites, does not recall rash except from those bites on the legs. Multiple joint pains. Bilateral facial weakness. Had no nausea, vomiting or diarrhea. No abdominal pain. No trouble urinating. No hematuria. PHYSICAL EXAMINATION: T-max is 98.5, pulse 97, respirations 18, blood pressure 157/97, oxygen saturation 96% on room air. Heart: Normal S1, S2. No murmurs, rubs or gallops. Lungs are diminished air entry, but clear. No wheezes, rales or rhonchi. Abdomen is soft, nontender. No visceromegaly. There is a large erythematous area measuring about 15 cm x 10 cm in the center of his abdomen with some central clearing. He has multiple insect bites on his lower extremities that are pruritic in nature with multiple scratch zaragoza and bleeding. Musculoskeletal: Mild lumbosacral tenderness. Knees full range of motion. Swollen toes and fingers and thumbs from psoriatic arthritis with multiple healed scars from surgeries. Neurologic exam: Alert and oriented times three. Bilateral Powell's palsy. Sensation intact. Cranial nerves other than bilateral Powell's palsy are normal, shrug is normal, upper and lower extremity strength normal. LABORATORY DATA: Sodium 135, potassium 4.5, chloride 102, bicarbonate 28, BUN 22, creatinine 0.7, glucose 108, calcium 9.1, bilirubin 0.7, AST 12, ALT 19, alkaline phosphatase 82, total protein 8.4, albumin 3.2, lipase 193, white count 8, hemoglobin 15.9, hematocrit 47.6, platelets 199, 78% neutrophils, 16% lymphocytes, 4% monocytes. CD-4 count is pending. Viral load is pending. Lyme serology is pending. Urinalysis had 3 white cells. Blood culture, one set, was ordered and was negative. Urine culture is negative. Brain MRI shows normal pre and post contrast possible mucocele on the right maxillary sinus. MEDICATIONS: - prednisone 40 mg daily - Colace 100 mg by mouth twice a day - MiraLax one packet by mouth twice a day - artificial tears - Percocet two tablets by mouth every 6 hours as needed - Adderall 5 mg by mouth twice a day - Lipitor 40 mg by mouth daily - Lovenox 40 mg subcutaneous daily - doxycycline 100 mg by mouth twice a day - meloxicam 15 mg by mouth daily - Zofran 4 mg IV every 6 hours as needed - Lexapro 20 mg by mouth daily IMPRESSION: This is a 52-year-old gentleman with a history of HIV AIDS with recent noncompliance to medication and CD-4 count of less than 50 who states has been doing much better with compliance, presents with bilateral Powell's palsy with exposure to dogs and gardening, possibly a tick bite, he also has an erythematous lesion on his abdomen, this is 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 The patient has been started on doxycycline and seems to be doing better. PLAN: Continue doxycycline 100 mg by mouth twice a day for 21 days pending Lyme serology. Will check HIV viral load and CD-4 count to make sure the patient has been compliant with medication. He has not been started on his HIV medications in the hospital and these will be restarted. Patient usually takes STRIBILD one tablet daily. This will be reordered. Will consult physical therapy for exercises to teach the patient on motor strengthening of facial muscles to help him with home exercises.
[2017-07-18] MEDS: ENOXAPARIN 40 MG/0.4 ML SYRINGE (J1650) SC SCH (20:05)
[2017-07-18 22:00] VITALS: BP 154/100
[2017-07-18] MEDS ORDERED: amLODIPine 5 MG TAB PO ONE (22:45)
[2017-07-19 01:56] VITALS: BP 172/110
[2017-07-19] MEDS ORDERED: amLODIPine 5 MG TAB PO ONE (02:45)
[2017-07-19] MEDS ORDERED: hydrALAZINE INJ 20 MG/ML VIAL IV ONE (02:45)
[2017-07-19 06:23] VITALS: BP 164/98
[2017-07-19 06:23] LABS: BASO % 0.3 % (0.0-1.0); EOS # 0.1 K/mm3 (0.0-0.50); EOS % 0.9 % (0.0-3.0); LARGE UNSTAINED CELL # 0.2 K/mm3 (0.0-0.4); LARGE UNSTAINED CELL % 2.4 % (0.0-4.0); LYMPH # 1.7 K/mm3 (1.5-4.5); LYMPH % 25.8 % (24.0-44.0); MEAN CORPUSCULAR HEMOGLOBIN 31.2 pg (27.0-33.0); MEAN CORPUSCULAR VOLUME 91.9 fl (80.0-96.0); MONO # 0.5 K/mm3 (0.0-0.8); MONO % 8.1 % (0.0-5.0); NEUTROPHILS # 4.1 K/mm3 (1.8-7.7); NEUTROPHILS % 62.4 % (36.0-66.0); PLATELET COUNT, AUTOMATED 235 k/mm3 (150-450); RED CELL DISTRIBUTION WIDTH 14.2 % (11.5-14.5); WHITE BLOOD COUNT 6.6 K/mm3 (4.0-10.0)
[2017-07-19 06:38] LABS: ALBUMIN 3.1 GM/DL (3.2-5.2); ALBUMIN/GLOBULIN RATIO 0.57 (1.00-1.93); ALKALINE PHOSPHATASE 70 U/L (45-117); ALT/SGPT 19 U/L (12-78); ANION GAP 6 MEQ/L (8-16); AST/SGOT 14 U/L (15-37); BILIRUBIN,TOTAL 0.5 MG/DL (0.2-1.0); BLOOD UREA NITROGEN 25 MG/DL (7-18); CALCIUM LEVEL 9.2 MG/DL (8.5-10.1); CARBON DIOXIDE LEVEL 28 MEQ/L (21-32); CHLORIDE LEVEL 105 MEQ/L (98-107); GLOMERULAR FILTRATION RATE > 60.0 (>56); GLUCOSE, FASTING 79 MG/DL (70-105); SODIUM LEVEL 139 MEQ/L (136-145); TOTAL PROTEIN 8.5 GM/DL (6.4-8.2)
[2017-07-19] MEDS: MIRALAX *UNIT DOSE* 17GM PACKET PO SCH ×2 (08:16→20:07)
[2017-07-19] MEDS: POLYVINYL ALCOHOL OPHTH SOLN 15 ML(LIQUITEARS) OU SCH ×4 (08:16→20:07)
[2017-07-19] MEDS: ADDERALL 5 MG TAB PO SCH ×2 (08:17→12:17)
[2017-07-19] MEDS: DOXYCYCLINE HYCLATE 100 MG TAB PO SCH ×2 (08:17→20:07)
[2017-07-19] MEDS: DOCUSATE SODIUM 100 MG CAP PO SCH ×2 (08:17→20:07)
[2017-07-19] MEDS: ESCITALOPRAM OXALATE 10 MG TAB (LEXAPRO) PO SCH (08:17)
[2017-07-19] MEDS: MELOXICAM (MOBIC) 7.5 MG TAB PO SCH (08:17)
[2017-07-19] MEDS: ATORVASTATIN 20 MG TAB PO SCH (08:17)
[2017-07-19] MEDS: predniSONE 20 MG TAB PO SCH (08:17)
[2017-07-19] MEDS: PERCOCET 5MG/325MG TAB PO PRN (08:18)
[2017-07-19 08:27] VITALS: BP 158/110
[2017-07-19] MEDS ORDERED: NON-FORMULARY 1 EA EA PO SCH (09:00)
[2017-07-19] MEDS ORDERED: amLODIPine 5 MG TAB PO SCH (09:00)
[2017-07-19 14:00] VITALS: BP 151/98
[2017-07-19] MEDS ORDERED: BISACODYL 10 MG SUPP PR ONE (15:30)
--- NOTE | 2017-07-19 17:16 | IPNPDOC ---
Date Seen The patient was seen on 07/19/17. Progress Note Hospitalist Progress Note Subjective: Patient states that he is begun to be able to close his eyes just a little bit, but is otherwise unable to get much motion in his face Objective: Physical Exam: Vitals: Vital Sign - Last 24 Hours 07/18/17 07/18/17 07/18/17 07/19/17 20:51 22:00 22:47 01:56 Temp 97.9 Pulse 69 74 68 Resp 17 18 B/P (MAP) 154/100 (118) 168/102 172/110 (130) Pulse Ox 94 O2 Delivery Room Air 07/19/17 07/19/17 07/19/17 07/19/17 02:46 06:00 06:23 08:17 Temp 98.7 Pulse 68 82 82 Resp 18 B/P (MAP) 172/110 164/98 (120) 164/98 Pulse Ox 96 O2 Delivery Room Air 07/19/17 07/19/17 07/19/17 07/19/17 08:18 08:27 08:48 14:00 Temp 97.7 Pulse 101 Resp 18 18 18 B/P (MAP) 158/110 (126) 151/98 (115) Pulse Ox 97 O2 Delivery Room Air General: Awake, alert, no acute distress HEENT: Mask like facies, normocephalic, atraumatic, patch over left eye CV: Regular rate and rhythm Lungs: Clear to auscultation bilaterally Abd: Soft, nontender, nondistended Extremities: No edema Neuro: Alert and oriented 3, minimal motion of his facial muscles Psych: Normal mood and affect Labs and Imaging: Laboratory Tests 07/19/17 05:23 Red Blood Count 5.23, Mean Corpuscular Volume 91.9, Mean Corpuscular Hemoglobin 31.2, Mean Corpuscular Hemoglobin Concent 34.0, Red Cell Distribution Width 14.2 , Neutrophils (%) (Auto) 62.4, Lymphocytes (%) (Auto) 25.8, Monocytes (%) (Auto ) 8.1 H, Eosinophils (%) (Auto) 0.9, Basophils (%) (Auto) 0.3, Neutrophils # ( Auto) 4.1, Lymphocytes # (Auto) 1.7, Monocytes # (Auto) 0.5, Eosinophils # (Auto ) 0.1, Basophils # (Auto) 0.0, Calcium Level 9.2, Aspartate Amino Transf (AST/ SGOT) 14 L, Alanine Aminotransferase (ALT/SGPT) 19, Alkaline Phosphatase 70, Total Bilirubin 0.5, Total Protein 8.5 H, Albumin 3.1 L Assessment and Plan: 52-year-old male with psoriatic arthritis, hyperlipidemia, depression, HIV/AIDS , who presented with bilateral weakness of his facial muscles. He has been admitted with concern for bilateral Powell's palsy secondary to Lyme disease. 1. Bilateral Powell's palsy: The patient has been evaluated by both neurology and infectious disease, and they suspect that this is bilateral Powell's palsy secondary to Lyme disease. Lyme titer is still pending. CT of the head and MRI of the brain are unremarkable. The patient has been on doxycycline, but upon discussion with Dr. Chapa today, she is considering placing him on Rocephin while he is in-house. The patient has also been started on a prednisone taper, which we'll continue. Artificial tears as needed. We have asked physical therapy and speech therapy to work with the patient on exercises to strengthen his facial muscles. He'll need continued outpatient therapy. 2. Elevated blood pressure: The patient does not have a history of hypertension , but has had quite elevated blood pressures while here. We are stopping his Adderall, and he has been started on daily Norvasc. We will continue to monitor. 3. Hyperlipidemia: Continue home statin. 4. Depression: Continue home Lexapro. 5. HIV/AIDS: The patient follows with Dr. Chapa who has restarted his HIV meds and is checking a CD4 and viral load. DVT prophylaxis: Lovenox Dispo: pending clearance by neurology and infectious disease VS, I&O, 24H, Davis Vital Signs/I&O Vital Signs Date Time Temp Pulse Resp B/P (MAP) Pulse Ox O2 Delivery O2 Flow Rate FiO2 07/19/17 14:00 97.7 101 18 151/98 (115) 97 Room Air I&O- Last 24 Hours up to 6 AM 07/19/17 06:00 Intake Total 920 ml Output Total 0 ml Balance 920 ml Laboratory Data 24H LABS Laboratory Tests 2 07/19/17 05:23: White Blood Count 6.6, Red Blood Count 5.23, Hemoglobin 16.3, Hematocrit 48.1, Mean Corpuscular Volume 91.9, Mean Corpuscular Hemoglobin 31.2, Mean Corpuscular Hemoglobin Concent 34.0, Red Cell Distribution Width 14.2, Platelet Count 235, Neutrophils (%) (Auto) 62.4, Lymphocytes (%) (Auto) 25.8, Monocytes ( %) (Auto) 8.1H, Eosinophils (%) (Auto) 0.9, Basophils (%) (Auto) 0.3, Neutrophils # (Auto) 4.1, Lymphocytes # (Auto) 1.7, Monocytes # (Auto) 0.5, Eosinophils # (Auto) 0.1, Basophils # (Auto) 0.0, Large Unclassified Cells % 2.4 , Large Unclassified Cells # 0.2, Anion Gap 6L, Glomerular Filtration Rate > 60.0, Blood Urea Nitrogen 25H, Creatinine 0.70, Sodium Level 139, Potassium Level 4.0, Chloride Level 105, Carbon Dioxide Level 28, Calcium Level 9.2, Aspartate Amino Transf (AST/SGOT) 14L, Alanine Aminotransferase (ALT/SGPT) 19, Alkaline Phosphatase 70, Total Bilirubin 0.5, Total Protein 8.5H, Albumin 3.1L, Albumin/Globulin Ratio 0.57L CBC/BMP Laboratory Tests 07/19/17 05:23 Red Blood Count 5.23, Mean Corpuscular Volume 91.9, Mean Corpuscular Hemoglobin 31.2, Mean Corpuscular Hemoglobin Concent 34.0, Red Cell Distribution Width 14.2 , Neutrophils (%) (Auto) 62.4, Lymphocytes (%) (Auto) 25.8, Monocytes (%) (Auto ) 8.1 H, Eosinophils (%) (Auto) 0.9, Basophils (%) (Auto) 0.3, Neutrophils # ( Auto) 4.1, Lymphocytes # (Auto) 1.7, Monocytes # (Auto) 0.5, Eosinophils # (Auto ) 0.1, Basophils # (Auto) 0.0, Calcium Level 9.2, Aspartate Amino Transf (AST/ SGOT) 14 L, Alanine Aminotransferase (ALT/SGPT) 19, Alkaline Phosphatase 70, Total Bilirubin 0.5, Total Protein 8.5 H, Albumin 3.1 L Microbiology Microbiology 07/16/17 Blood Culture - Preliminary, Resulted No Growth after 72 hours. All specime... 07/16/17 Urine Culture - Final, Complete DOROTA OVALLE Jul 19, 2017 17:16
[2017-07-19] MEDS: cefTRIAXone SOD 2 GM in D5W MINI-BAG PLUS 50 ML IV SCH (17:35)
[2017-07-19] MEDS: ENOXAPARIN 40 MG/0.4 ML SYRINGE (J1650) SC SCH (20:07)
[2017-07-19 22:00] VITALS: BP 162/100
[2017-07-19 23:30] VITALS: BP 159/113
[2017-07-20 00:06] LABS: %CD3+CD4+CD8+ 0.4 % (Not Estab.); %CD3+CD4+CD8- 1.2 % (Not Estab.); %CD3+CD4-CD8+ 72.7 % (Not Estab.); %CD3+CD4-CD8- 5.4 % (Not Estab.); ABS CD3+CD4+CD8+ 6 /uL (Not Estab.); ABS CD3+CD4+CD8- 19 /uL (Not Estab.); ABS CD3+CD4-CD8+ 1163 /uL (Not Estab.); ABS CD3+CD4-CD8- 86 /uL (Not Estab.); CD4/CD8 NYSDOH RATIO 0.02 (Not Estab.); Eosinophils 0 % (.); HCT 45.8 % (37.5-51.0); HGB 15.7 g/dL (12.6-17.7); Monocytes 5 % (.); Neutrophils 76 % (.); WBC 8.7 x10E3/uL (3.4-10.8)
[2017-07-20 00:06] LABS: Lyme Disease IgG/IgM Antibodie <0.91 ISR (0.00-0.90); Lyme Disease IgM Ab Quantitati <0.80 index (0.00-0.79)
[2017-07-20 07:41] LABS: BASO % 0.6 % (0.0-1.0); EOS # 0.1 K/mm3 (0.0-0.50); EOS % 1.2 % (0.0-3.0); LARGE UNSTAINED CELL # 0.1 K/mm3 (0.0-0.4); LARGE UNSTAINED CELL % 2.4 % (0.0-4.0); LYMPH # 1.5 K/mm3 (1.5-4.5); LYMPH % 28.8 % (24.0-44.0); MEAN CORPUSCULAR HEMOGLOBIN 31.3 pg (27.0-33.0); MEAN CORPUSCULAR HGB CONC 34.8 g/dl (32.0-36.5); MONO # 0.4 K/mm3 (0.0-0.8); MONO % 8.3 % (0.0-5.0); NEUTROPHILS # 3.1 K/mm3 (1.8-7.7); NEUTROPHILS % 58.8 % (36.0-66.0); PLATELET COUNT, AUTOMATED 218 k/mm3 (150-450); RED CELL DISTRIBUTION WIDTH 13.9 % (11.5-14.5); WHITE BLOOD COUNT 5.2 K/mm3 (4.0-10.0)
[2017-07-20 07:45] VITALS: BP 162/108
[2017-07-20 07:46] VITALS: BP 160/100
[2017-07-20 07:53] LABS: ALBUMIN 3.2 GM/DL (3.2-5.2); ALBUMIN/GLOBULIN RATIO 0.62 (1.00-1.93); ALKALINE PHOSPHATASE 66 U/L (45-117); ALT/SGPT 31 U/L (12-78); ANION GAP 8 MEQ/L (8-16); AST/SGOT 26 U/L (15-37); BILIRUBIN,TOTAL 0.5 MG/DL (0.2-1.0); BLOOD UREA NITROGEN 25 MG/DL (7-18); CALCIUM LEVEL 9.1 MG/DL (8.5-10.1); CARBON DIOXIDE LEVEL 28 MEQ/L (21-32); CHLORIDE LEVEL 105 MEQ/L (98-107); CREATININE FOR GFR 0.68 MG/DL (0.70-1.30); GLOMERULAR FILTRATION RATE > 60.0 (>56); GLUCOSE, FASTING 97 MG/DL (70-105); MAGNESIUM LEVEL 2.3 MG/DL (1.8-2.4); POTASSIUM SERUM 3.8 MEQ/L (3.5-5.1); SODIUM LEVEL 141 MEQ/L (136-145); TOTAL PROTEIN 8.4 GM/DL (6.4-8.2)
--- NOTE | 2017-07-20 08:52 | IPN ---
DATE: 07/19/2017 Abelardo is concerned because he has had constipation in spite of taking multiple oral medications, Colace, as well as Dulcolax. The patient complains of bloating. He has no nausea or vomiting. He also has concerns about difficulty with closing his eyes. He was seen by physical therapy but they did not work with him regarding his Powell's palsy. He has had high blood pressure in spite of having two doses of amlodipine. The patient has been chronically on Adderall and that should not be the cause of his elevated blood pressure but may be prednisone. He denies any headache. He has chronic low back pain, which is at baseline. He has been afebrile. Heart with normal S1, S2. No murmurs. Lungs are clear. No wheezes or rhonchi. Abdomen is a bloated soft, nontender. Extremities with no edema. He has bug bites on his lower extremities, psoriatic nails, swollen toes and fingers. Oropharynx is clear with no thrush. Vital signs: Blood pressure is 158/110, pulse 82, respirations 18, afebrile. IMPRESSION: 1. Bilateral Powell's palsy, most likely related to Lyme disease. Negative brain MRI with contrast. The patient on doxycycline orally with very slow improvement and prednisone. We will give him at a couple doses of IV Rocephin. 2. Hypertension, probably related to a combination of stress, Adderall and maybe new onset hypertension. We will discontinue Adderall for the time being. 3. Constipation. Continue his stool softeners. He will also use Dulcolax suppository. PLAN: IV Rocephin 2 grams daily until Lyme serology available and then continue with oral doxycycline if positive. The case has been discussed with hospitalist who will also be ordering a speech consult. We have given the patient some exercises for Powell's palsy to strengthen facial muscles.
[2017-07-20] MEDS ORDERED: amLODIPine 10 MG TAB PO SCH (09:00)
[2017-07-20] MEDS: MIRALAX *UNIT DOSE* 17GM PACKET PO SCH (09:37)
[2017-07-20] MEDS: DOCUSATE SODIUM 100 MG CAP PO SCH (09:37)
[2017-07-20] MEDS: DOXYCYCLINE HYCLATE 100 MG TAB PO SCH (09:37)
[2017-07-20] MEDS: ESCITALOPRAM OXALATE 10 MG TAB (LEXAPRO) PO SCH (09:37)
[2017-07-20] MEDS: ATORVASTATIN 20 MG TAB PO SCH (09:38)
[2017-07-20] MEDS: ANEXSIA, NORCO 7.5MG/325MG TABLET(HYDROCODONE/APAP) PO PRN ×2 (09:38→16:57)
[2017-07-20 09:39] VITALS: BP 160/100
[2017-07-20] MEDS: predniSONE 20 MG TAB PO SCH (09:39)
[2017-07-20] MEDS: POLYVINYL ALCOHOL OPHTH SOLN 15 ML(LIQUITEARS) OU SCH ×3 (09:40→17:00)
[2017-07-20] MEDS ORDERED: MOM 30ML SUSPENSION UDC PO ONE (10:30)
[2017-07-20 15:00] VITALS: BP 136/83
[2017-07-20] MEDS ORDERED: DOXY100T2 PO (15:25)
[2017-07-20] MEDS ORDERED: AKWASOL OU (15:25)
[2017-07-20] MEDS ORDERED: AMLO10TA2 PO (15:25)
[2017-07-20] MEDS ORDERED: PRED10TA2 PO (15:30)
--- NOTE | 2017-07-20 15:42 | DS.PDOC ---
Discharge Summary General Date of Admission Jul 16, 2017 at 15:32 Date of Discharge 07/20/2017 Discharge Summary DISCHARGE SUMMARY DATE OF ADMISSION: 07/16/2017 DATE OF DISCHARGE: 07/20/2017 PRIMARY CARE PHYSICIAN: Dr. Chapa DISCHARGE DIAGNOS(E)S: Bilateral Powell's palsy Elevated blood pressure HPI & HOSPITAL COURSE: 52-year-old male with psoriatic arthritis, hyperlipidemia, depression, HIV/AIDS , who presented with bilateral weakness of his facial muscles. He has been admitted with concern for bilateral Powell's palsy secondary to Lyme disease. 1. Bilateral Powell's palsy: The patient has been evaluated by both neurology and infectious disease, and they suspect that this is bilateral Powell's palsy secondary to Lyme disease. Lyme titer is negative but Dr. Chapa states that it is possible that it is too early in the course for it to result out as negative. She states that she will repeat it as an outpatient.. CT of the head and MRI of the brain are unremarkable. The patient will receive 21 days of doxycycline. The patient has also been started on a prednisone taper, which we' ll continue. Artificial tears as needed. We have asked physical therapy and speech therapy to work with the patient on exercises to strengthen his facial muscles. He'll need continued outpatient therapy, and he has been given an RX for such. I have spoken with both Dr. Chapa and Dr. Warner on the day of discharge, and both infectious disease and neurology services have cleared him for discharge today. 2. Elevated blood pressure: The patient does not have a history of hypertension , but has had quite elevated blood pressures while here. We have stopped his Adderall, and he has been started on daily Norvasc, which seems to be helping. He will need follow up with his PCP, whom he tells me is Dr. Chapa. 3. Hyperlipidemia: Continue home statin. 4. Depression: Continue home Lexapro. 5. HIV/AIDS: The patient follows with Dr. Chapa who has restarted his HIV meds and is checking a CD4 and viral load. DVT prophylaxis: Lovenox PHYSICAL EXAMINATION ON DISCHARGE: VITAL SIGNS: Vital Signs Date Time Temp Pulse Resp B/P (MAP) Pulse Ox O2 Delivery O2 Flow Rate FiO2 07/20/17 15:00 98.3 91 16 136/83 (100) 96 Room Air General: Awake, alert, no acute distress HEENT: Mask like facies, normocephalic, atraumatic CV: Regular rate and rhythm Lungs: Clear to auscultation bilaterally Abd: Soft, nontender, nondistended Extremities: No edema Neuro: Alert and oriented 3, minimal motion of his facial muscles Psych: Normal mood and affect DISPOSITION: Home with outpatient physical therapy DISCHARGE INSTRUCTIONS: Follow-up with PCP, who is Dr Chapa, within one week. Follow-up with Dr. Andrade in 1-2 weeks. If symptoms return, or if you experience worsening of your symptoms, please call your doctor or return to the emergency department. ITEMS THAT NEED OUTPATIENT FOLLOWUP: Repeat Lyme titer, monitor blood pressure Patient was seen and examined by me on the day of discharge, and I spent a total time of greater than 30 minutes on this discharge. Vital Signs/I&Os Vital Signs Date Time Temp Pulse Resp B/P (MAP) Pulse Ox O2 Delivery O2 Flow Rate FiO2 07/20/17 15:00 98.3 91 16 136/83 (100) 96 Room Air I&O- Last 24 Hours up to 6 AM 07/20/17 06:00 Intake Total 1560 ml Output Total 600 ml Balance 960 ml Laboratory Data Labs 24H Laboratory Tests 2 07/20/17 06:56: White Blood Count 5.2, Red Blood Count 5.22, Hemoglobin 16.4, Hematocrit 47.0, Mean Corpuscular Volume 90.0, Mean Corpuscular Hemoglobin 31.3, Mean Corpuscular Hemoglobin Concent 34.8, Red Cell Distribution Width 13.9, Platelet Count 218, Neutrophils (%) (Auto) 58.8, Lymphocytes (%) (Auto) 28.8, Monocytes ( %) (Auto) 8.3H, Eosinophils (%) (Auto) 1.2, Basophils (%) (Auto) 0.6, Neutrophils # (Auto) 3.1, Lymphocytes # (Auto) 1.5, Monocytes # (Auto) 0.4, Eosinophils # (Auto) 0.1, Basophils # (Auto) 0.0, Large Unclassified Cells % 2.4 , Large Unclassified Cells # 0.1, Anion Gap 8, Glomerular Filtration Rate > 60.0 , Blood Urea Nitrogen 25H, Creatinine 0.68L, Sodium Level 141, Potassium Level 3.8, Chloride Level 105, Carbon Dioxide Level 28, Calcium Level 9.1, Aspartate Amino Transf (AST/SGOT) 26, Alanine Aminotransferase (ALT/SGPT) 31, Alkaline Phosphatase 66, Total Bilirubin 0.5, Total Protein 8.4H, Albumin 3.2, Magnesium Level 2.3, Albumin/Globulin Ratio 0.62L CBC/BMP Laboratory Tests 07/20/17 06:56 Red Blood Count 5.22, Mean Corpuscular Volume 90.0, Mean Corpuscular Hemoglobin 31.3, Mean Corpuscular Hemoglobin Concent 34.8, Red Cell Distribution Width 13.9 , Neutrophils (%) (Auto) 58.8, Lymphocytes (%) (Auto) 28.8, Monocytes (%) (Auto ) 8.3 H, Eosinophils (%) (Auto) 1.2, Basophils (%) (Auto) 0.6, Neutrophils # ( Auto) 3.1, Lymphocytes # (Auto) 1.5, Monocytes # (Auto) 0.4, Eosinophils # (Auto ) 0.1, Basophils # (Auto) 0.0, Calcium Level 9.1, Aspartate Amino Transf (AST/ SGOT) 26, Alanine Aminotransferase (ALT/SGPT) 31, Alkaline Phosphatase 66, Total Bilirubin 0.5, Total Protein 8.4 H, Albumin 3.2 Microbiology Microbiology 07/16/17 Blood Culture - Preliminary, Resulted No Growth after 72 hours. All specime... 07/16/17 Urine Culture - Final, Complete Discharge Medications Scheduled (Stribild [phone] mg) 1 Tab Tab, 1 TAB PO DAILY, (Reported) (Acitretin) 25 Mg Cap, 50 MG PO DAILY, (Reported) Amlodipine Besylate (Amlodipine Besylate) 10 Mg Tab, 10 MG PO DAILY Atorvastatin Calcium (Atorvastatin Calcium) 40 Mg Tab, 40 MG PO DAILY, (Reported ) Doxycycline Hyclate (Doxycycline Hyclate) 100 Mg Tab, 100 MG PO BID Escitalopram Oxalate (Escitalopram Oxalate) 20 Mg Tab, 20 MG PO DAILY, (Reported ) Meloxicam (Meloxicam) 15 Mg Tab, 15 MG PO DAILY, (Reported) Prednisone (Prednisone) 10 Mg Tab, 1-2 TABS PO DAILY 2 tabs PO daily x2 days then 1 tab PO daily x2 days then stop Scheduled PRN Artificial Tears (Akwa Tears) 1.4 % Penelope, 2 DROP OU Q2H PRN for EYE IRRITATION AND DRYNESS Use at bedtime, as well as when needed throughout the day up to every 2 hours Oxycodone/Acetaminophen (Percocet 7.5-325 mg) 1 Tab Tab, 1 TAB PO Q6H PRN for PAIN, (Reported) Allergies Coded Allergies: Penicillins (Verified Allergy, Severe, DIFFICULTY BREATHING, 07/16/17) Penicillins Cross Reactors (Verified Allergy, Severe, DIFFICULTY BREATHING , 07/16/17) DOROTA OVALLE Jul 20, 2017 15:42
[2017-07-20] MEDS: cefTRIAXone SOD 2 GM in D5W MINI-BAG PLUS 50 ML IV SCH (16:00)
[2017-07-21 08:07] LABS: HIV-1 RNA PCR QUANT 1 LC162545 556340 copies/mL (.); HIV-1 RNA PCR QUANT 2 LC162545 5.745 (.)
[2017-07-21] MEDS ORDERED: predniSONE 20 MG TAB PO SCH (09:00)
[2017-07-23] MEDS ORDERED: predniSONE 10 MG TAB PO SCH (09:00)
== END 2017-07-20 18:49 | disposition home or self-care (01) | DRG 867 ==
LOC: M ED 12:24 → M ED INP 15:32 → M MS4PR 17:48 → M MSPAV 07-17 17:00 → M PED 07-19 23:12
PROVIDERS: ADMIT Internal Medicine; ATTEND Hospitalist
DX: A69.20 Lyme disease, unspecified (principal); B20 Human immunodeficiency virus [HIV] disease; G51.0 Bell's palsy; E78.5 Hyperlipidemia, unspecified; F32.9 Major depressive disorder, single episode, unspecified; R03.0 Elevated blood-pressure reading, without diagnosis of hypertension; Z88.0 Allergy status to penicillin; Z98.1 Arthrodesis status; Z87.891 Personal history of nicotine dependence; L40.50 Arthropathic psoriasis, unspecified; Z91.14 Patient's other noncompliance with medication regimen

== ENCOUNTER → 2017-09-06 | Outpatient (REF) | payer MEDICARE ==
[2017-09-06 16:05] LABS: ALBUMIN 3.3 GM/DL (3.2-5.2); ALBUMIN/GLOBULIN RATIO 0.66 (1.00-1.93); ALKALINE PHOSPHATASE 94 U/L (45-117); ALT/SGPT 28 U/L (12-78); ANION GAP 4 MEQ/L (8-16); AST/SGOT 19 U/L (7-37); BILIRUBIN,TOTAL 0.4 MG/DL (0.2-1.0); BLOOD UREA NITROGEN 10 MG/DL (7-18); CALCIUM LEVEL 8.8 MG/DL (8.5-10.1); CARBON DIOXIDE LEVEL 31 MEQ/L (21-32); CHLORIDE LEVEL 104 MEQ/L (98-107); CREATININE FOR GFR 0.75 MG/DL (0.70-1.30); GLOMERULAR FILTRATION RATE > 60.0 (>56); GLUCOSE, FASTING 102 MG/DL (70-105); POTASSIUM SERUM 3.8 MEQ/L (3.5-5.1); SODIUM LEVEL 139 MEQ/L (136-145); TOTAL PROTEIN 8.3 GM/DL (6.4-8.2)
[2017-09-09 08:06] LABS: Eosinophils 4 % (Not Estab.); HCT 44.6 % (37.5-51.0); HGB 15.3 g/dL (12.6-17.7); Lyme Disease IgG/IgM Antibodie <0.91 ISR (0.00-0.90); Lyme Disease IgM Ab Quantitati <0.80 index (0.00-0.79); Monocytes 15 % (Not Estab.); Neutrophils 47 % (Not Estab.)
[2017-09-21 12:46] LABS: HIV GenoSure PRIme(R) SEE SEPARATE REPORT
== END ==
LOC: M SFHCPLAZ 13:47
PROVIDERS: ATTEND Internal Medicine Infectious Disease
DX: B20 Human immunodeficiency virus [HIV] disease (principal); G51.0 Bell's palsy; Z23 Encounter for immunization
CPT/HCPCS: 36415; 80053; 86360; 86617; 87536; 90686; G0008; G0463

== ENCOUNTER → 2017-10-11 | Outpatient (REF) | payer MEDICARE | LOC: M SFHCPLAZ 13:04 | PROVIDERS: ATTEND Internal Medicine Infectious Disease | DX: B20 Human immunodeficiency virus [HIV] disease (principal); Z53.8 Procedure and treatment not carried out for other reasons ==

== ENCOUNTER → 2018-03-20 | Outpatient (REF) | payer MEDICARE ==
[2018-03-20 14:15] LABS: APPEARANCE, URINE CLEAR (CLEAR); BACTERIA, URINE AUTO NEGATIVE (NEGATIVE); BILIRUBIN, URINE AUTO NEGATIVE (NEGATIVE); BLOOD, URINE BLOOD NEGATIVE (NEGATIVE); COLOR, URINE YELLOW (YELLOW); GLUCOSE, URINE (UA) AUTO NEGATIVE (NEGATIVE); KETONE, URINE AUTO NEGATIVE (NEGATIVE); LEUKOCYTE ESTERASE, URINE AUTO NEGATIVE (NEGATIVE); MUCUS, URINE LARGE (NEGATIVE); NITRITE, URINE AUTO NEGATIVE (NEGATIVE); PROTEIN, URINE AUTO NEGATIVE (NEGATIVE); RBC, URINE AUTO 2 /HPF (0-3); SPECIFIC GRAVITY URINE AUTO 1.021 (1.002-1.035); SQUAMOUS EPITHELIAL CELL UR AU 0 /HPF (0-6); WBC, URINE AUTO 3 /HPF (0-3)
[2018-03-20 14:34] LABS: ALBUMIN 3.8 GM/DL (3.2-5.2); ALBUMIN/GLOBULIN RATIO 0.73 (1.00-1.93); ALKALINE PHOSPHATASE 95 U/L (45-117); ALT/SGPT 21 U/L (12-78); ANION GAP 3 MEQ/L (8-16); AST/SGOT 18 U/L (7-37); BILIRUBIN,TOTAL 0.3 MG/DL (0.2-1.0); BLOOD UREA NITROGEN 13 MG/DL (7-18); CALCIUM LEVEL 8.9 MG/DL (8.5-10.1); CARBON DIOXIDE LEVEL 29 MEQ/L (21-32); CHLORIDE LEVEL 107 MEQ/L (98-107); CHOLESTEROL LEVEL 208 MG/DL (<200); CHOLESTEROL RISK RATIO 7.428 (<5); CREATININE FOR GFR 0.73 MG/DL (0.70-1.30); GLOMERULAR FILTRATION RATE > 60.0 (>56); GLUCOSE, FASTING 85 MG/DL (70-100); HDL CHOLESTEROL 28 MG/DL (>40); LDL CHOLESTEROL 156.8 MG/DL (<100); NON-HDL-C 180 MG/DL; POTASSIUM SERUM 4.2 MEQ/L (3.5-5.1); SODIUM LEVEL 139 MEQ/L (136-145); TRIGLYCERIDES LEVEL 116 MG/DL (<150)
[2018-03-20 15:37] LABS: CHLAMYDIA DNA AMPLIFICATION NEGATIVE (NEGATIVE); GC DNA AMPLIFICATION NEGATIVE (NEGATIVE)
== END ==
LOC: M SFHCPLAZ 11:45
DX: B20 Human immunodeficiency virus [HIV] disease (principal); E78.00 Pure hypercholesterolemia, unspecified; Z11.3 Encounter for screening for infections with a predominantly sexual mode of transmission
CPT/HCPCS: 80053

== ENCOUNTER → 2018-09-11 | Outpatient (REF) | payer MEDICARE ==
[2018-09-11 16:44] LABS: ALBUMIN 3.6 GM/DL (3.2-5.2); ALBUMIN/GLOBULIN RATIO 0.71 (1.00-1.93); ALKALINE PHOSPHATASE 89 U/L (45-117); ALT/SGPT 35 U/L (12-78); ANION GAP 7 MEQ/L (8-16); AST/SGOT 22 U/L (7-37); BILIRUBIN,TOTAL 0.5 MG/DL (0.2-1.0); BLOOD UREA NITROGEN 13 MG/DL (7-18); CALCIUM LEVEL 8.9 MG/DL (8.5-10.1); CARBON DIOXIDE LEVEL 28 MEQ/L (21-32); CHLORIDE LEVEL 106 MEQ/L (98-107); CHOLESTEROL LEVEL 150 MG/DL (<200); CHOLESTEROL RISK RATIO 5.769 (<5); CREATININE FOR GFR 0.77 MG/DL (0.70-1.30); GLOMERULAR FILTRATION RATE > 60.0 (>56); GLUCOSE, FASTING 75 MG/DL (70-100); HDL CHOLESTEROL 26 MG/DL (>40); LDL CHOLESTEROL 93 MG/DL (<100); NON-HDL-C 124 MG/DL; SODIUM LEVEL 141 MEQ/L (136-145); TOTAL PROTEIN 8.7 GM/DL (6.4-8.2); TRIGLYCERIDES LEVEL 156 MG/DL (<150)
[2018-09-15 00:07] LABS: % CD8 Pos Lymph 74.1 % (12.0-35.5); %CD4 Pos Lymphs 2.9 % (30.8-58.5); ABS Eosinophils 0.1 x10E3/uL (0.0-0.4); ABS Lymphs 1.4 x10E3/uL (0.7-3.1); ABS Monocytes 0.7 x10E3/uL (0.1-0.9); ABS Neutophils 2.5 x10E3/uL (1.4-7.0); Abs CD4 Helper 41 /uL (359-1519); Abs CD8 Suppres 1037 /uL (109-897); CD4/CD8 Ratio 0.04 (0.92-3.72); Eosinophils 2 % (Not Estab.); HCT 47.9 % (37.5-51.0); HGB 16.8 g/dL (13.0-17.7); HIV-1 RNA PCR QUANT 2 LC550285 4880 copies/mL (.); HIV-1 RNA PCR QUANT 3 LC550285 3.688 (.); Immature Grans 0 % (Not Estab.); Lymphocytes 29 % (Not Estab.); MCH 31.8 pg (26.6-33.0); MCHC 35.1 g/dL (31.5-35.7); MCV 91 fL (79-97); Monocytes 16 % (Not Estab.); Neutrophils 53 % (Not Estab.); Platelets 130 x10E3/uL (150-379); RBC 5.29 x10E6/uL (4.14-5.80); RDW 14.5 % (12.3-15.4); WBC 4.7 x10E3/uL (3.4-10.8)
== END ==
LOC: M SFHCPLAZ 12:58
DX: B20 Human immunodeficiency virus [HIV] disease (principal); E78.00 Pure hypercholesterolemia, unspecified; Z23 Encounter for immunization
CPT/HCPCS: 80053

== ENCOUNTER → 2019-01-11 | Outpatient (REF) | payer MEDICARE ==
[~2019-01-11] MED LIST changes: -AMLO10TA2 PO; +AMLO10TA5 PO; +MELO15TA28 PO; -MELO15TA4 PO
== END ==
LOC: M SFHCPLAZ 16:38
PROVIDERS: ATTEND Internal Medicine Infectious Disease
DX: L02.01 Cutaneous abscess of face (principal)

== ENCOUNTER → 2019-01-11 | Outpatient (REF) | payer MEDICARE ==
[2019-01-11 16:59] LABS: ALBUMIN 3.9 GM/DL (3.2-5.2); ALT/SGPT 28 U/L (12-78); BILIRUBIN,TOTAL 0.4 MG/DL (0.2-1.0); BLOOD UREA NITROGEN 13 MG/DL (7-18); CALCIUM LEVEL 9.3 MG/DL (8.5-10.1); CARBON DIOXIDE LEVEL 35 MEQ/L (21-32); CHLORIDE LEVEL 104 MEQ/L (98-107); CHOLESTEROL LEVEL 233 MG/DL (<200); CHOLESTEROL RISK RATIO 8.629 (<5); CREATININE FOR GFR 0.96 MG/DL (0.70-1.30); GLOMERULAR FILTRATION RATE > 60.0 (>56); GLUCOSE, FASTING 88 MG/DL (70-100); HDL CHOLESTEROL 27 MG/DL (>40); LDL CHOLESTEROL 156 MG/DL (<100); NON-HDL-C 206 MG/DL; POTASSIUM SERUM 4.5 MEQ/L (3.5-5.1); SODIUM LEVEL 140 MEQ/L (136-145); TOTAL PROTEIN 8.5 GM/DL (6.4-8.2); TRIGLYCERIDES LEVEL 248 MG/DL (<150)
[2019-01-11 19:07] LABS: APPEARANCE, URINE CLEAR (CLEAR); BACTERIA, URINE AUTO NEGATIVE (NEGATIVE); BILIRUBIN, URINE AUTO NEGATIVE (NEGATIVE); BLOOD, URINE BLOOD NEGATIVE (NEGATIVE); COLOR, URINE YELLOW (YELLOW); GLUCOSE, URINE (UA) AUTO NEGATIVE (NEGATIVE); KETONE, URINE AUTO TRACE mg/dL (NEGATIVE); LEUKOCYTE ESTERASE, URINE AUTO NEGATIVE (NEGATIVE); MUCUS, URINE SMALL (NEGATIVE); NITRITE, URINE AUTO NEGATIVE (NEGATIVE); PROTEIN, URINE AUTO NEGATIVE (NEGATIVE); RBC, URINE AUTO 3 /HPF (0-3); SPECIFIC GRAVITY URINE AUTO 1.025 (1.002-1.035); SQUAMOUS EPITHELIAL CELL UR AU 0 /HPF (0-6); WBC, URINE AUTO 1 /HPF (0-3)
[2019-01-12 11:00] LABS: HEPATITIS C VIRUS ABY INDEX 0.1 INDEX (<0.8)
[2019-01-16 08:06] LABS: % CD8 Pos Lymph 74.3 % (12.0-35.5); %CD4 Pos Lymphs 2.8 % (30.8-58.5); ABS Eosinophils 0.2 x10E3/uL (0.0-0.4); ABS Lymphs 1.8 x10E3/uL (0.7-3.1); ABS Monocytes 0.5 x10E3/uL (0.1-0.9); ABS Neutophils 1.9 x10E3/uL (1.4-7.0); Abs CD4 Helper 50 /uL (359-1519); Abs CD8 Suppres 1337 /uL (109-897); CD4/CD8 Ratio 0.04 (0.92-3.72); Eosinophils 5 % (Not Estab.); HCT 50.8 % (37.5-51.0); HGB 17.3 g/dL (13.0-17.7); Immature Grans 0 % (Not Estab.); Lymphocytes 42 % (Not Estab.); MCH 32.8 pg (26.6-33.0); MCHC 34.1 g/dL (31.5-35.7); MCV 96 fL (79-97); Monocytes 10 % (Not Estab.); Neutrophils 42 % (Not Estab.); Platelets 183 x10E3/uL (150-379); RBC 5.28 x10E6/uL (4.14-5.80); RDW 15.7 % (12.3-15.4); WBC 4.4 x10E3/uL (3.4-10.8)
[2019-01-17 00:07] LABS: HIV-1 RNA PCR QUANT 2 LC550285 1360 copies/mL (.); HIV-1 RNA PCR QUANT 3 LC550285 3.134 (.)
== END ==
LOC: M SFHCPLAZ 12:52
PROVIDERS: ATTEND Internal Medicine Infectious Disease
DX: B20 Human immunodeficiency virus [HIV] disease (principal); E78.00 Pure hypercholesterolemia, unspecified; L02.01 Cutaneous abscess of face
CPT/HCPCS: 80053; 80061; 81001; 86360; 86480; 86803; 87070; 87077; 87186; 87205; 87536; G0463

== ENCOUNTER → 2019-02-15 | Outpatient (REF) | payer MEDICARE ==
[2019-02-21 00:58] LABS: HIV-1 RNA PCR QUANT 2 LC550285 5020 copies/mL (.); HIV-1 RNA PCR QUANT 3 LC550285 3.701 (.)
[2019-02-27 07:25] LABS: HIV GenoSure PRIme(R) SEE SEPARATE REPORT
== END ==
LOC: M SFHCPLAZ 14:31
PROVIDERS: ATTEND Internal Medicine Infectious Disease
DX: B20 Human immunodeficiency virus [HIV] disease (principal)
CPT/HCPCS: 36415; 87536; G0463

== ENCOUNTER → 2019-04-30 | Outpatient (REF) | payer MEDICARE ==
[2019-04-30 15:59] LABS: ALBUMIN 3.7 GM/DL (3.2-5.2); ALT/SGPT 21 U/L (12-78); BILIRUBIN,TOTAL 0.5 MG/DL (0.2-1.0); BLOOD UREA NITROGEN 17 MG/DL (7-18); CALCIUM LEVEL 9.2 MG/DL (8.5-10.1); CARBON DIOXIDE LEVEL 31 MEQ/L (21-32); CHLORIDE LEVEL 103 MEQ/L (98-107); CREATININE FOR GFR 1.14 MG/DL (0.70-1.30); GLOMERULAR FILTRATION RATE > 60.0 (>56); GLUCOSE, FASTING 98 MG/DL (70-100); POTASSIUM SERUM 3.9 MEQ/L (3.5-5.1); SODIUM LEVEL 140 MEQ/L (136-145); TOTAL PROTEIN 8.3 GM/DL (6.4-8.2)
[2019-05-04 00:11] LABS: % CD8 Pos Lymph 74.7 % (12.0-35.5); %CD4 Pos Lymphs 3.3 % (30.8-58.5); ABS Eosinophils 0.2 x10E3/uL (0.0-0.4); ABS Lymphs 1.7 x10E3/uL (0.7-3.1); ABS Monocytes 0.4 x10E3/uL (0.1-0.9); ABS Neutophils 1.9 x10E3/uL (1.4-7.0); Abs CD4 Helper 56 /uL (359-1519); Abs CD8 Suppres 1270 /uL (109-897); CD4/CD8 Ratio 0.04 (0.92-3.72); Eosinophils 4 % (Not Estab.); HCT 51.4 % (37.5-51.0); HGB 16.9 g/dL (13.0-17.7); HIV-1 RNA PCR QUANT 2 LC550285 180 copies/mL (.); HIV-1 RNA PCR QUANT 3 LC550285 2.255 (.); Immature Grans 0 % (Not Estab.); Lymphocytes 41 % (Not Estab.); MCH 31.9 pg (26.6-33.0); MCHC 32.9 g/dL (31.5-35.7); MCV 97 fL (79-97); Monocytes 9 % (Not Estab.); Neutrophils 45 % (Not Estab.); Platelets 174 x10E3/uL (150-450); RBC 5.29 x10E6/uL (4.14-5.80); RDW 14.3 % (12.3-15.4); WBC 4.3 x10E3/uL (3.4-10.8)
== END ==
LOC: M SFHCPLAZ 13:35
PROVIDERS: ATTEND Internal Medicine Infectious Disease
DX: B20 Human immunodeficiency virus [HIV] disease (principal)
CPT/HCPCS: 36415; 80053; 86360; 87536; G0463

== ENCOUNTER → 2019-08-06 | Outpatient (REF) | payer MEDICARE ==
[2019-08-06 15:53] LABS: APPEARANCE, URINE CLEAR (CLEAR); BACTERIA, URINE AUTO NEGATIVE (NEGATIVE); BILIRUBIN, URINE AUTO NEGATIVE (NEGATIVE); BLOOD, URINE BLOOD NEGATIVE (NEGATIVE); COLOR, URINE YELLOW (YELLOW); GLUCOSE, URINE (UA) AUTO NEGATIVE (NEGATIVE); KETONE, URINE AUTO TRACE mg/dL (NEGATIVE); LEUKOCYTE ESTERASE, URINE AUTO NEGATIVE (NEGATIVE); MUCUS, URINE SMALL (NEGATIVE); NITRITE, URINE AUTO NEGATIVE (NEGATIVE); PROTEIN, URINE AUTO NEGATIVE (NEGATIVE); RBC, URINE AUTO 1 /HPF (0-3); SPECIFIC GRAVITY URINE AUTO 1.023 (1.002-1.035); SQUAMOUS EPITHELIAL CELL UR AU 0 /HPF (0-6); WBC, URINE AUTO 1 /HPF (0-3)
[2019-08-06 16:03] LABS: ALBUMIN 3.6 GM/DL (3.2-5.2); ALT/SGPT 23 U/L (12-78); BILIRUBIN,TOTAL 0.5 MG/DL (0.2-1.0); BLOOD UREA NITROGEN 11 MG/DL (7-18); CALCIUM LEVEL 8.9 MG/DL (8.5-10.1); CARBON DIOXIDE LEVEL 33 MEQ/L (21-32); CHLORIDE LEVEL 101 MEQ/L (98-107); CREATININE FOR GFR 1.04 MG/DL (0.70-1.30); GLOMERULAR FILTRATION RATE > 60.0 (>56); GLUCOSE, FASTING 135 MG/DL (70-100); SODIUM LEVEL 138 MEQ/L (136-145); TOTAL PROTEIN 8.2 GM/DL (6.4-8.2)
[2019-08-10 00:06] LABS: %CD4 Pos Lymphs 3.9 % (30.8-58.5); ABS Eosinophils 0.1 x10E3/uL (0.0-0.4); ABS Lymphs 1.7 x10E3/uL (0.7-3.1); ABS Monocytes 0.5 x10E3/uL (0.1-0.9); ABS Neutophils 2.6 x10E3/uL (1.4-7.0); Abs CD4 Helper 66 /uL (359-1519); Abs CD8 Suppres 1258 /uL (109-897); CD4/CD8 Ratio 0.05 (0.92-3.72); Eosinophils 3 % (Not Estab.); HCT 53.1 % (37.5-51.0); HGB 17.9 g/dL (13.0-17.7); HIV-1 RNA PCR QUANT 2 LC550285 170 copies/mL (.); Immature Grans 0 % (Not Estab.); Lymphocytes 35 % (Not Estab.); MCH 32.1 pg (26.6-33.0); MCHC 33.7 g/dL (31.5-35.7); MCV 95 fL (79-97); Monocytes 9 % (Not Estab.); Neutrophils 53 % (Not Estab.); Platelets 176 x10E3/uL (150-450); RBC 5.57 x10E6/uL (4.14-5.80); RDW 15.6 % (12.3-15.4); TESTOSTERONE FREE (DIRECT) 4.1 pg/mL (7.2-24.0); WBC 4.9 x10E3/uL (3.4-10.8)
== END ==
LOC: M SFHCPLAZ 13:31
PROVIDERS: ATTEND Internal Medicine Infectious Disease
DX: B20 Human immunodeficiency virus [HIV] disease (principal); N52.9 Male erectile dysfunction, unspecified; Z23 Encounter for immunization
CPT/HCPCS: 80053; 81001; 84402; 84403; 86360; 87536; 90682; G0008; G0103; G0463

== ENCOUNTER → 2019-12-06 | Outpatient (REF) | payer MEDICARE ==
[2019-12-06 13:52] LABS: APPEARANCE, URINE CLEAR (CLEAR); BACTERIA, URINE AUTO NEGATIVE (NEGATIVE); BILIRUBIN, URINE AUTO NEGATIVE (NEGATIVE); BLOOD, URINE BLOOD NEGATIVE (NEGATIVE); COLOR, URINE AMBER (YELLOW); GLUCOSE, URINE (UA) AUTO NEGATIVE (NEGATIVE); KETONE, URINE AUTO TRACE mg/dL (NEGATIVE); LEUKOCYTE ESTERASE, URINE AUTO NEGATIVE (NEGATIVE); MUCUS, URINE MODERATE (NEGATIVE); NITRITE, URINE AUTO NEGATIVE (NEGATIVE); PROTEIN, URINE AUTO NEGATIVE (NEGATIVE); RBC, URINE AUTO 5 /HPF (0-3); SPECIFIC GRAVITY URINE AUTO 1.026 (1.002-1.035); SQUAMOUS EPITHELIAL CELL UR AU 0 /HPF (0-6); WBC, URINE AUTO 1 /HPF (0-3)
[2019-12-06 14:21] LABS: ALBUMIN 3.9 GM/DL (3.2-5.2); ALT/SGPT 24 U/L (12-78); BILIRUBIN,TOTAL 0.4 MG/DL (0.2-1.0); BLOOD UREA NITROGEN 13 MG/DL (7-18); CALCIUM LEVEL 8.9 MG/DL (8.5-10.1); CARBON DIOXIDE LEVEL 33 MEQ/L (21-32); CHLORIDE LEVEL 101 MEQ/L (98-107); CHOLESTEROL LEVEL 299 MG/DL (<200); CHOLESTEROL RISK RATIO 10.678 (<5); CREATININE FOR GFR 1.03 MG/DL (0.70-1.30); GLOMERULAR FILTRATION RATE > 60.0 (>56); GLUCOSE, FASTING 86 MG/DL (70-100); HDL CHOLESTEROL 28 MG/DL (>40); LDL CHOLESTEROL 223 MG/DL (<100); NON-HDL-C 271 MG/DL; POTASSIUM SERUM 4.1 MEQ/L (3.5-5.1); SODIUM LEVEL 139 MEQ/L (136-145); TOTAL PROTEIN 8.4 GM/DL (6.4-8.2); TRIGLYCERIDES LEVEL 239 MG/DL (<150)
[2019-12-11 00:06] LABS: % CD8 Pos Lymph 74.8 % (12.0-35.5); %CD4 Pos Lymphs 4.2 % (30.8-58.5); ABS Eosinophils 0.1 x10E3/uL (0.0-0.4); ABS Lymphs 1.9 x10E3/uL (0.7-3.1); ABS Monocytes 0.7 x10E3/uL (0.1-0.9); ABS Neutophils 2.7 x10E3/uL (1.4-7.0); Abs CD4 Helper 80 /uL (359-1519); Abs CD8 Suppres 1421 /uL (109-897); CD4/CD8 Ratio 0.06 (0.92-3.72); Eosinophils 2 % (Not Estab.); HCT 53.4 % (37.5-51.0); HGB 18.1 g/dL (13.0-17.7); HIV-1 RNA PCR QUANT 2 LC550285 330 copies/mL (.); HIV-1 RNA PCR QUANT 3 LC550285 2.519 (.); Immature Grans 0 % (Not Estab.); Lymphocytes 35 % (Not Estab.); MCH 32.8 pg (26.6-33.0); MCHC 33.9 g/dL (31.5-35.7); MCV 97 fL (79-97); Monocytes 13 % (Not Estab.); Neutrophils 49 % (Not Estab.); Platelets 194 x10E3/uL (150-450); RBC 5.51 x10E6/uL (4.14-5.80); RDW 14.5 % (11.6-15.4); WBC 5.5 x10E3/uL (3.4-10.8)
== END ==
LOC: M SFHCPLAZ 10:39
PROVIDERS: ATTEND Internal Medicine Infectious Disease
DX: B20 Human immunodeficiency virus [HIV] disease (principal); E78.00 Pure hypercholesterolemia, unspecified; I10 Essential (primary) hypertension
CPT/HCPCS: 36415; 80053; 80061; 81001; 86360; 87536; G0463

== ENCOUNTER → 2020-01-15 | Outpatient (REF) | payer MEDICARE ==
[2020-01-15 15:51] LABS: ALBUMIN 3.6 GM/DL (3.2-5.2); ALT/SGPT 24 U/L (12-78); BILIRUBIN,TOTAL 0.5 MG/DL (0.2-1.0); BLOOD UREA NITROGEN 11 MG/DL (7-18); CALCIUM LEVEL 8.9 MG/DL (8.5-10.1); CARBON DIOXIDE LEVEL 31 MEQ/L (21-32); CHLORIDE LEVEL 102 MEQ/L (98-107); CREATININE FOR GFR 0.88 MG/DL (0.70-1.30); GLOMERULAR FILTRATION RATE > 60.0 (>56); GLUCOSE, FASTING 107 MG/DL (70-100); POTASSIUM SERUM 4.3 MEQ/L (3.5-5.1); SODIUM LEVEL 135 MEQ/L (136-145); TOTAL PROTEIN 8.1 GM/DL (6.4-8.2)
[2020-01-22 00:07] LABS: % CD8 Pos Lymph 75.7 % (12.0-35.5); %CD4 Pos Lymphs 4.9 % (30.8-58.5); ABS Eosinophils 0.1 x10E3/uL (0.0-0.4); ABS Monocytes 0.6 x10E3/uL (0.1-0.9); ABS Neutophils 2.5 x10E3/uL (1.4-7.0); Abs CD4 Helper 98 /uL (359-1519); Abs CD8 Suppres 1514 /uL (109-897); CD4/CD8 Ratio 0.06 (0.92-3.72); Eosinophils 2 % (Not Estab.); HCT 52.8 % (37.5-51.0); HGB 17.9 g/dL (13.0-17.7); HIV-1 RNA PCR QUANT 2 LC550285 650 copies/mL (.); HIV-1 RNA PCR QUANT 3 LC550285 2.813 (.); Immature Grans 0 % (Not Estab.); Lymphocytes 39 % (Not Estab.); MCH 32.8 pg (26.6-33.0); MCHC 33.9 g/dL (31.5-35.7); MCV 97 fL (79-97); Monocytes 11 % (Not Estab.); Neutrophils 47 % (Not Estab.); Platelets 214 x10E3/uL (150-450); RBC 5.45 x10E6/uL (4.14-5.80); RDW 14.3 % (11.6-15.4); WBC 5.3 x10E3/uL (3.4-10.8)
== END ==
LOC: M SFHCPLAZ 12:13
PROVIDERS: ATTEND Internal Medicine Infectious Disease
DX: B20 Human immunodeficiency virus [HIV] disease (principal)
CPT/HCPCS: 80053; 86360; 87536; G0463

== ENCOUNTER → 2020-03-13 | Outpatient (REF) | payer MEDICARE ==
[2020-03-13 13:12] LABS: ALBUMIN 3.7 GM/DL (3.2-5.2); ALT/SGPT 35 U/L (12-78); BILIRUBIN,TOTAL 0.6 MG/DL (0.2-1.0); BLOOD UREA NITROGEN 11 MG/DL (7-18); CARBON DIOXIDE LEVEL 35 MEQ/L (21-32); CHLORIDE LEVEL 102 MEQ/L (98-107); CREATININE FOR GFR 0.97 MG/DL (0.70-1.30); GLOMERULAR FILTRATION RATE > 60.0 (>56); GLUCOSE, FASTING 118 MG/DL (70-100); POTASSIUM SERUM 4.5 MEQ/L (3.5-5.1); SODIUM LEVEL 140 MEQ/L (136-145); TOTAL PROTEIN 8.4 GM/DL (6.4-8.2)
[2020-03-17 10:06] LABS: % CD8 Pos Lymph 76.5 % (12.0-35.5); %CD4 Pos Lymphs 3.7 % (30.8-58.5); ABS Eosinophils 0.1 x10E3/uL (0.0-0.4); ABS Monocytes 0.7 x10E3/uL (0.1-0.9); ABS Neutophils 2.8 x10E3/uL (1.4-7.0); Abs CD4 Helper 74 /uL (359-1519); Abs CD8 Suppres 1530 /uL (109-897); CD4/CD8 Ratio 0.05 (0.92-3.72); Eosinophils 2 % (Not Estab.); HCT 51.6 % (37.5-51.0); HGB 17.3 g/dL (13.0-17.7); HIV-1 RNA PCR QUANT 2 LC550285 560 copies/mL (.); HIV-1 RNA PCR QUANT 3 LC550285 2.748 (.); Immature Grans 0 % (Not Estab.); Lymphocytes 35 % (Not Estab.); MCH 31.8 pg (26.6-33.0); MCHC 33.5 g/dL (31.5-35.7); MCV 95 fL (79-97); Monocytes 12 % (Not Estab.); Neutrophils 50 % (Not Estab.); Platelets 219 x10E3/uL (150-450); RBC 5.44 x10E6/uL (4.14-5.80); RDW 12.9 % (11.6-15.4); WBC 5.7 x10E3/uL (3.4-10.8)
== END ==
LOC: M SFHCPLAZ 10:51
PROVIDERS: ATTEND Internal Medicine Infectious Disease
DX: B20 Human immunodeficiency virus [HIV] disease (principal)
CPT/HCPCS: 36415; 80053; 86360; 87536; G0463

== ENCOUNTER → 2020-07-15 | Outpatient (REF) | payer MEDICARE ==
[~2020-07-15] MED LIST changes: -AMLO10TA5 PO; +AMLO1TAB25 PO
[2020-07-15 14:29] LABS: ALBUMIN 4.2 GM/DL (3.2-5.2); ALT/SGPT 28 U/L (12-78); BILIRUBIN,TOTAL 0.7 MG/DL (0.2-1.0); BLOOD UREA NITROGEN 9 MG/DL (7-18); CALCIUM LEVEL 9.1 MG/DL (8.5-10.1); CARBON DIOXIDE LEVEL 33 MEQ/L (21-32); CHLORIDE LEVEL 102 MEQ/L (98-107); CHOLESTEROL LEVEL 176 MG/DL (<200); CHOLESTEROL RISK RATIO 4.756 (<5); GLOMERULAR FILTRATION RATE > 60.0 (>56); GLUCOSE, FASTING 93 MG/DL (70-100); HDL CHOLESTEROL 37 MG/DL (>40); LDL CHOLESTEROL 107 MG/DL (<100); NON-HDL-C 139 MG/DL; POTASSIUM SERUM 3.6 MEQ/L (3.5-5.1); SODIUM LEVEL 138 MEQ/L (136-145); TRIGLYCERIDES LEVEL 159 MG/DL (<150)
[2020-07-16 12:08] LABS: % CD8 Pos Lymph 72.5 % (12.0-35.5); %CD4 Pos Lymphs 3.8 % (30.8-58.5); ABS Basophils 0.1 x10E3/uL (0.0-0.2); ABS Eosinophils 0.2 x10E3/uL (0.0-0.4); ABS Lymphs 2.3 x10E3/uL (0.7-3.1); ABS Monocytes 0.8 x10E3/uL (0.1-0.9); ABS Neutophils 2.9 x10E3/uL (1.4-7.0); Abs CD4 Helper 87 /uL (359-1519); Abs CD8 Suppres 1668 /uL (109-897); CD4/CD8 Ratio 0.05 (0.92-3.72); Eosinophils 3 % (Not Estab.); HGB 17.8 g/dL (13.0-17.7); Immature Grans 0 % (Not Estab.); Lymphocytes 37 % (Not Estab.); MCH 32.8 pg (26.6-33.0); MCHC 34.2 g/dL (31.5-35.7); MCV 96 fL (79-97); Monocytes 13 % (Not Estab.); Neutrophils 46 % (Not Estab.); Platelets 222 x10E3/uL (150-450); RBC 5.43 x10E6/uL (4.14-5.80); RDW 13.6 % (11.6-15.4); WBC 6.3 x10E3/uL (3.4-10.8)
== END ==
LOC: M PLALAB 13:18
PROVIDERS: ATTEND Internal Medicine Infectious Disease
DX: B20 Human immunodeficiency virus [HIV] disease (principal); E78.00 Pure hypercholesterolemia, unspecified
CPT/HCPCS: 36415; 80053; 80061; 86360; 87536; G0463

== ENCOUNTER → 2020-10-13 | Outpatient (REF) | payer MEDICARE | LOC: M SFHCPLAZ 13:14 | PROVIDERS: ATTEND Internal Medicine Infectious Disease | DX: R09.02 Hypoxemia (principal); Z20.828 Contact with and (suspected) exposure to other viral communicable diseases; Z23 Encounter for immunization | CPT/HCPCS: 90682; G0008; G0463; U0003 ==

== ENCOUNTER → 2020-12-01 | Outpatient (REF) | payer MEDICARE ==
[~2020-12-01] MED LIST changes: -ESCI20TA PO; +ESCI20TA16 PO
[2020-12-03 12:13] LABS: % CD8 Pos Lymph 69.1 % (12.0-35.5); %CD4 Pos Lymphs 4.5 % (30.8-58.5); ABS Lymphs 1.6 x10E3/uL (0.7-3.1); ABS Monocytes 0.7 x10E3/uL (0.1-0.9); ABS Neutophils 5.5 x10E3/uL (1.4-7.0); Abs CD4 Helper 72 /uL (359-1519); Abs CD8 Suppres 1106 /uL (109-897); CD4/CD8 Ratio 0.07 (0.92-3.72); Eosinophils 0 % (Not Estab.); HCT 50.4 % (37.5-51.0); HGB 17.3 g/dL (13.0-17.7); HIV-1 RNA PCR QUANT 2 LC550285 100 copies/mL (.); Imm ABS Grans 0.1 x10E3/uL (0.0-0.1); Immature Grans 1 % (Not Estab.); Lymphocytes 20 % (Not Estab.); MCH 32.6 pg (26.6-33.0); MCHC 34.3 g/dL (31.5-35.7); MCV 95 fL (79-97); Monocytes 8 % (Not Estab.); Neutrophils 70 % (Not Estab.); Platelets 226 x10E3/uL (150-450); RBC 5.31 x10E6/uL (4.14-5.80); RDW 13.3 % (11.6-15.4); TESTOSTERONE FREE (DIRECT) 3.2 pg/mL (7.2-24.0); WBC 7.8 x10E3/uL (3.4-10.8)
== END ==
LOC: M SFHCPLAZ 11:16
PROVIDERS: ATTEND Internal Medicine Infectious Disease
DX: B20 Human immunodeficiency virus [HIV] disease (principal); N52.9 Male erectile dysfunction, unspecified; Z79.899 Other long term (current) drug therapy
CPT/HCPCS: 36415; 80307; 84402; 84403; 86360; 87536; G0463

== ENCOUNTER → 2021-02-12 | Outpatient (REF) | payer MEDICARE ==
[2021-02-12 14:17] LABS: AMORPHOUS SEDIMENT SMALL (NEGATIVE); APPEARANCE, URINE HAZY (CLEAR); BACTERIA, URINE AUTO NEGATIVE (NEGATIVE); BILIRUBIN, URINE AUTO NEGATIVE (NEGATIVE); BLOOD, URINE BLOOD NEGATIVE (NEGATIVE); COLOR, URINE AMBER (YELLOW); GLUCOSE, URINE (UA) AUTO 1+ mg/dL (NEGATIVE); KETONE, URINE AUTO TRACE mg/dL (NEGATIVE); LEUKOCYTE ESTERASE, URINE AUTO NEGATIVE (NEGATIVE); MUCUS, URINE MODERATE (NEGATIVE); NITRITE, URINE AUTO NEGATIVE (NEGATIVE); PROTEIN, URINE AUTO 1+ mg/dL (NEGATIVE); RBC, URINE AUTO 1 /HPF (0-3); SQUAMOUS EPITHELIAL CELL UR AU 1 /HPF (0-6); WBC, URINE AUTO 2 /HPF (0-3)
[2021-02-12 14:47] LABS: ALT/SGPT 32 U/L (12-78); BILIRUBIN,TOTAL 0.7 MG/DL (0.2-1.0); BLOOD UREA NITROGEN 8 MG/DL (7-18); CALCIUM LEVEL 9.5 MG/DL (8.5-10.1); CARBON DIOXIDE LEVEL 31 MEQ/L (21-32); CHLORIDE LEVEL 104 MEQ/L (98-107); CREATININE FOR GFR 0.89 MG/DL (0.70-1.30); GLOMERULAR FILTRATION RATE > 60.0 (>56); GLUCOSE, FASTING 177 MG/DL (70-100); SODIUM LEVEL 138 MEQ/L (136-145)
[2021-02-14 12:07] LABS: % CD8 Pos Lymph 71.2 % (12.0-35.5); %CD4 Pos Lymphs 4.8 % (30.8-58.5); ABS Basophils 0.1 x10E3/uL (0.0-0.2); ABS Eosinophils 0.1 x10E3/uL (0.0-0.4); ABS Lymphs 2.1 x10E3/uL (0.7-3.1); ABS Monocytes 0.7 x10E3/uL (0.1-0.9); ABS Neutophils 2.3 x10E3/uL (1.4-7.0); Abs CD4 Helper 101 /uL (359-1519); Abs CD8 Suppres 1495 /uL (109-897); CD4/CD8 Ratio 0.07 (0.92-3.72); Eosinophils 3 % (Not Estab.); HCT 49.8 % (37.5-51.0); HGB 17.6 g/dL (13.0-17.7); HIV-1 RNA PCR QUANT 2 LC550285 230 copies/mL (.); HIV-1 RNA PCR QUANT 3 LC550285 2.362 (.); Immature Grans 0 % (Not Estab.); Lymphocytes 39 % (Not Estab.); MCH 33.6 pg (26.6-33.0); MCHC 35.3 g/dL (31.5-35.7); MCV 95 fL (79-97); Monocytes 13 % (Not Estab.); Neutrophils 44 % (Not Estab.); Platelets 206 x10E3/uL (150-450); RBC 5.24 x10E6/uL (4.14-5.80); WBC 5.2 x10E3/uL (3.4-10.8)
== END ==
LOC: M SFHCPLAZ 11:33
PROVIDERS: ATTEND Internal Medicine Infectious Disease
DX: B20 Human immunodeficiency virus [HIV] disease (principal); R35.0 Frequency of micturition
CPT/HCPCS: 36415; 80053; 81001; 86360; 87086; 87536; G0463

== ENCOUNTER → 2021-03-17 | Outpatient (CLI) | payer MEDICARE ==
[~2021-03-17] MED LIST changes: +ALBU8.5H INH; +SYMT1TAB PO; +TIVI1TAB PO; +VENL150T24 PO; +[UNRECOGNIZED DRUG - CODE] PO
--- NOTE | 2021-03-17 12:55 | REPPI ---
INDICATION: AIDS COMPARISON: 07/16/2017. TECHNIQUE: PA/Lateral FINDINGS: Lungs: Clear, no infiltrate. Heart: Normal in size. Mediastinum: Mediastinal silhouette unremarkable. Pleural angles: Unremarkable.. Bones and soft tissues: Unremarkable. IMPRESSION: No acute pulmonary disease. <Electronically signed by Ignacio Crook > 03/17/21 [id number]
== END ==
LOC: M PLAIMG 11:27
PROVIDERS: ATTEND Internal Medicine Infectious Disease
DX: Z01.818 Encounter for other preprocedural examination (principal); B20 Human immunodeficiency virus [HIV] disease
CPT/HCPCS: 36415; 71046; 80048; 85025; 85610; G0463

== ENCOUNTER → 2021-03-17 | Outpatient (REF) | payer MEDICARE ==
[2021-03-17 15:04] LABS: BASO # 0.1 10^3/uL (0.0-0.2); EOS # 0.1 10^3/uL (0.0-0.5); EOS % 2.4 % (0.0-3.0); HEMATOCRIT 52.5 % (42.0-52.0); HEMOGLOBIN 17.8 g/dl (13.5-17.5); LYMPH # 1.9 10^3/uL (1.5-5.0); LYMPH % 39.2 % (24.0-44.0); MEAN CORPUSCULAR HEMOGLOBIN 32.4 pg (27.0-33.0); MEAN CORPUSCULAR HGB CONC 33.9 g/dl (32.0-36.5); MEAN CORPUSCULAR VOLUME 95.5 fl (80.0-96.0); MONO # 0.7 10^3/uL (0.0-0.8); MONO % 13.9 % (2.0-8.0); NEUTROPHILS # 2.1 10^3/uL (1.5-8.5); NEUTROPHILS % 43.3 % (36.0-66.0); PLATELET COUNT, AUTOMATED 220 10^3/uL (150-450); WHITE BLOOD COUNT 4.9 10^3/uL (4.0-10.0)
[2021-03-17 15:14] LABS: INR 0.92; PROTHROMBIN TIME 12.6 SECONDS (12.5-14.3)
[2021-03-17 15:40] LABS: BLOOD UREA NITROGEN 9 MG/DL (7-18); CALCIUM LEVEL 9.4 MG/DL (8.5-10.1); CARBON DIOXIDE LEVEL 30 MEQ/L (21-32); CHLORIDE LEVEL 103 MEQ/L (98-107); CREATININE FOR GFR 0.87 MG/DL (0.70-1.30); GLOMERULAR FILTRATION RATE > 60.0 (>56); GLUCOSE, FASTING 158 MG/DL (70-100); POTASSIUM SERUM 3.9 MEQ/L (3.5-5.1); SODIUM LEVEL 138 MEQ/L (136-145)
== END ==
LOC: M SFHCPLAZ 11:27
PROVIDERS: ATTEND Internal Medicine Infectious Disease
DX: Z01.818 Encounter for other preprocedural examination (principal); B20 Human immunodeficiency virus [HIV] disease

== ENCOUNTER 2021-03-23 12:57 | Day surgery (SDC) | payer MEDICARE ==
[~2021-03-23] VITALS: Ht 182.9 cm; Wt 100.6 kg
[~2021-03-23 12:57] MED LIST changes: +LR 1,000 ML IV ONE
[2021-03-23] MEDS ORDERED: TRIMETHOPRIM/SULFAMETHOXAZOLE 160 MG in D5W 250 ML IV ONE (13:00)
[2021-03-23] MEDS ORDERED: LIDOCAINE 2% 100MG/5ML SDV (FOR ANES.) As Ordered ONE (14:37)
[2021-03-23] MEDS ORDERED: propofoL 200 MG/20 ML VIAL As Ordered ONE (14:37)
[2021-03-23] MEDS ORDERED: ONDANSETRON 4MG/2ML VIAL As Ordered ONE (14:38)
[2021-03-23] MEDS ORDERED: MIDAZOLAM INJ 2MG/2ML VIAL (J2250 PER 1MG) As Ordered ONE (14:38)
[2021-03-23] MEDS ORDERED: fentaNYL 100 MCG/2 ML INJECTION (J3010) As Ordered ONE (14:38)
[2021-03-23] MEDS ORDERED: dexameTHASONE 4 MG/ML 1ML VIAL (J1100 PER 1MG) As Ordered ONE (14:38)
[2021-03-23] MEDS ORDERED: KETOROLAC 60MG 2ML VIAL As Ordered ONE (15:47)
[2021-03-23] MEDS ORDERED: BUPIVACAINE HCL 0.25% 30ML VIAL As Ordered ONE (16:38)
[2021-03-23] MEDS ORDERED: ACETAMINOPHEN 1000MG 100ML IV BTL (OFIRMEV) (J0131 PER 10MG) As Ordered ONE (17:03)
--- NOTE | 2021-03-23 17:36 | ROOPDOC ---
[facility] Report Of Operation Report of Operation DATE OF PROCEDURE: 03/23/21 PREPROCEDURE DIAGNOSES: Scrotal lesion POSTPROCEDURE DIAGNOSES: Scrotal lesion PROCEDURE: Excision of scrotal lesion SURGEON: Jorge Luis Chang MD PAINTING DEPARTMENT SUPERVISOR: None ANESTHESIA: Gen. ESTIMATED BLOOD LOSS: Approximately less than 5 mL. COMPLICATIONS: None REMARKS: . PROCEDURE NOTE: The patient is brought to the operating room for excision of a perineal scrotal lesion DESCRIPTION OF PROCEDURE: The patient was placed in the supine position, given general anesthesia, placed in lithotomy position, prepped with Betadine paint a nd draped in a sterile manner. Timeout was then performed. The plan area of excision was marked with a marking pen and a #15 scalpel was used to make an elliptical incision around the scrotal lesion. Very it was then excised using the Bovie cautery. Hemostasis was achieved with cauterization. The defect was then closed using 20 and 3-0 Vicryl sutures and a Dermabond dressing was applied. The patient was then awakened and sent to recovery room stable condition having tolerated procedure well. JORGE LUIS CHANG MD March 23, 2021 17:36
[2021-03-23] MEDS ORDERED: ONDANSETRON 4MG/2ML VIAL IV PRN (17:50)
[2021-03-23] MEDS ORDERED: fentaNYL 100 MCG/2 ML INJECTION (J3010) IV PRN (17:50)
[2021-03-23] MEDS ORDERED: MEPERIDINE INJ 25 MG/ML VIAL (J2175) IV PRN (17:50)
[2021-03-23] MEDS ORDERED: LR 1,000 ML IV SCH (17:50)
[2021-03-23] MEDS ORDERED: oxyCODONE 5MG TAB PO PRN (18:10)
[2021-03-23 18:50] VITALS: BP 138/97
== END 2021-03-23 18:50 | disposition home or self-care (01) ==
LOC: M SDC 12:57
PROVIDERS: ATTEND Urology
DX: A63.0 Anogenital (venereal) warts (principal); L40.50 Arthropathic psoriasis, unspecified; F41.9 Anxiety disorder, unspecified; F32.9 Major depressive disorder, single episode, unspecified; J44.9 Chronic obstructive pulmonary disease, unspecified; Z21 Asymptomatic human immunodeficiency virus [HIV] infection status; Z87.891 Personal history of nicotine dependence; Z88.0 Allergy status to penicillin; Z79.899 Other long term (current) drug therapy; N50.9 Disorder of male genital organs, unspecified
CPT/HCPCS: 17110; 88305; J0131; J1100; J1885; J2250; J2405; J3010

== ENCOUNTER → 2021-08-10 | Outpatient (CLI) | payer MEDICARE ==
[~2021-08-10] MED LIST changes: -LR 1,000 ML IV ONE
[2021-08-10 14:37] LABS: ALBUMIN 3.9 GM/DL (3.2-5.2); ALT/SGPT 25 U/L (12-78); BILIRUBIN,TOTAL 0.6 MG/DL (0.2-1.0); BLOOD UREA NITROGEN 10 MG/DL (7-18); CALCIUM LEVEL 9.5 MG/DL (8.5-10.1); CARBON DIOXIDE LEVEL 32 MEQ/L (21-32); CHLORIDE LEVEL 105 MEQ/L (98-107); CHOLESTEROL LEVEL 193 MG/DL (<200); CHOLESTEROL RISK RATIO 5.216 (<5); CREATININE FOR GFR 0.98 MG/DL (0.70-1.30); GLOMERULAR FILTRATION RATE > 60.0 (>56); GLUCOSE, FASTING 156 MG/DL (70-100); HDL CHOLESTEROL 37 MG/DL (>40); LDL CHOLESTEROL 132 MG/DL (<100); NON-HDL-C 156 MG/DL; POTASSIUM SERUM 3.9 MEQ/L (3.5-5.1); SODIUM LEVEL 140 MEQ/L (136-145); TOTAL PROTEIN 8.1 GM/DL (6.4-8.2); TRIGLYCERIDES LEVEL 119 MG/DL (<150)
[2021-08-13 12:12] LABS: % CD8 Pos Lymph 73.4 % (12.0-35.5); %CD4 Pos Lymphs 4.5 % (30.8-58.5); ABS Basophils 0.1 x10E3/uL (0.0-0.2); ABS Eosinophils 0.2 x10E3/uL (0.0-0.4); ABS Lymphs 2.3 x10E3/uL (0.7-3.1); ABS Monocytes 0.8 x10E3/uL (0.1-0.9); ABS Neutophils 2.5 x10E3/uL (1.4-7.0); Abs CD4 Helper 104 /uL (359-1519); Abs CD8 Suppres 1688 /uL (109-897); CD4/CD8 Ratio 0.06 (0.92-3.72); Eosinophils 3 % (Not Estab.); HCT 50.8 % (37.5-51.0); HGB 17.1 g/dL (13.0-17.7); HIV-1 RNA PCR QUANT 2 LC550285 150 copies/mL (.); HIV-1 RNA PCR QUANT 3 LC550285 2.176 (.); Immature Grans 0 % (Not Estab.); Lymphocytes 40 % (Not Estab.); MCH 30.7 pg (26.6-33.0); MCHC 33.7 g/dL (31.5-35.7); MCV 91 fL (79-97); Monocytes 14 % (Not Estab.); Neutrophils 42 % (Not Estab.); Platelets 210 x10E3/uL (150-450); RBC 5.57 x10E6/uL (4.14-5.80); RDW 13.8 % (11.6-15.4); WBC 5.8 x10E3/uL (3.4-10.8)
== END ==
LOC: M PLALAB 11:21
PROVIDERS: ATTEND Internal Medicine Infectious Disease
DX: B20 Human immunodeficiency virus [HIV] disease (principal); E78.00 Pure hypercholesterolemia, unspecified; Z23 Encounter for immunization
CPT/HCPCS: 36415; 80053; 80061; 86360; 87536; 90682; G0008; G0463

== ENCOUNTER → 2022-01-07 | Outpatient (CLI) | payer MEDICARE ==
[2022-01-07 13:36] LABS: APPEARANCE, URINE CLEAR (CLEAR); BACTERIA, URINE AUTO NEGATIVE (NEGATIVE); BILIRUBIN, URINE AUTO NEGATIVE (NEGATIVE); BLOOD, URINE BLOOD NEGATIVE (NEGATIVE); COLOR, URINE YELLOW (YELLOW); GLUCOSE, URINE (UA) AUTO 3+ mg/dL (NEGATIVE); KETONE, URINE AUTO NEGATIVE (NEGATIVE); LEUKOCYTE ESTERASE, URINE AUTO NEGATIVE (NEGATIVE); NITRITE, URINE AUTO NEGATIVE (NEGATIVE); PROTEIN, URINE AUTO NEGATIVE (NEGATIVE); RBC, URINE AUTO 1 /HPF (0-3); SPECIFIC GRAVITY URINE AUTO 1.025 (1.002-1.035); SQUAMOUS EPITHELIAL CELL UR AU 0 /HPF (0-6); WBC, URINE AUTO 0 /HPF (0-3)
[2022-01-07 14:03] LABS: ALBUMIN 3.9 GM/DL (3.2-5.2); ALT/SGPT 57 U/L (12-78); BILIRUBIN,TOTAL 0.5 MG/DL (0.2-1.0); BLOOD UREA NITROGEN 11 MG/DL (7-18); CALCIUM LEVEL 9.6 MG/DL (8.5-10.1); CARBON DIOXIDE LEVEL 34 MEQ/L (21-32); CHLORIDE LEVEL 103 MEQ/L (98-107); CHOLESTEROL LEVEL 176 MG/DL (<200); CHOLESTEROL RISK RATIO 5.028 (<5); CREATININE FOR GFR 0.85 MG/DL (0.70-1.30); GLOMERULAR FILTRATION RATE > 60.0 (>56); GLUCOSE, FASTING 285 MG/DL (70-100); HDL CHOLESTEROL 35 MG/DL (>40); LDL CHOLESTEROL 104 MG/DL (<100); NON-HDL-C 141 MG/DL; POTASSIUM SERUM 4.4 MEQ/L (3.5-5.1); SODIUM LEVEL 140 MEQ/L (136-145); TOTAL PROTEIN 7.6 GM/DL (6.4-8.2); TRIGLYCERIDES LEVEL 185 MG/DL (<150)
[2022-01-08 19:07] LABS: % CD8 Pos Lymph 70.6 % (12.0-35.5); %CD4 Pos Lymphs 4.7 % (30.8-58.5); ABS Basophils 0.1 x10E3/uL (0.0-0.2); ABS Eosinophils 0.1 x10E3/uL (0.0-0.4); ABS Lymphs 1.6 x10E3/uL (0.7-3.1); ABS Monocytes 0.7 x10E3/uL (0.1-0.9); ABS Neutophils 2.3 x10E3/uL (1.4-7.0); Abs CD4 Helper 75 /uL (359-1519); Abs CD8 Suppres 1130 /uL (109-897); CD4/CD8 Ratio 0.07 (0.92-3.72); Eosinophils 2 % (Not Estab.); HCT 44.3 % (37.5-51.0); HGB 15.3 g/dL (13.0-17.7); HIV-1 RNA PCR QUANT 2 LC550285 50 copies/mL (.); HIV-1 RNA PCR QUANT 3 LC550285 1.699 (.); Immature Grans 0 % (Not Estab.); Lymphocytes 34 % (Not Estab.); MCH 32.5 pg (26.6-33.0); MCHC 34.5 g/dL (31.5-35.7); MCV 94 fL (79-97); Monocytes 14 % (Not Estab.); Neutrophils 49 % (Not Estab.); Platelets 179 x10E3/uL (150-450); RBC 4.71 x10E6/uL (4.14-5.80); RDW 12.6 % (11.6-15.4); WBC 4.7 x10E3/uL (3.4-10.8)
== END ==
LOC: M PLALAB 11:19
PROVIDERS: ATTEND Internal Medicine Infectious Disease
DX: E78.00 Pure hypercholesterolemia, unspecified (principal); B20 Human immunodeficiency virus [HIV] disease; Z79.899 Other long term (current) drug therapy

== ENCOUNTER → 2022-05-13 | Outpatient (CLI) | payer MEDICARE ==
[2022-05-13 15:39] LABS: ALBUMIN 4.2 GM/DL (3.2-5.2); ALT/SGPT 30 U/L (12-78); BILIRUBIN,TOTAL 0.5 MG/DL (0.2-1.0); BLOOD UREA NITROGEN 10 MG/DL (7-18); CALCIUM LEVEL 9.4 MG/DL (8.5-10.1); CARBON DIOXIDE LEVEL 32 MEQ/L (21-32); CHLORIDE LEVEL 103 MEQ/L (98-107); CHOLESTEROL LEVEL 162 MG/DL (<200); CHOLESTEROL RISK RATIO 5.062 (<5); GLOMERULAR FILTRATION RATE > 60.0 (>56); GLUCOSE, FASTING 174 MG/DL (70-100); HDL CHOLESTEROL 32 MG/DL (>40); LDL CHOLESTEROL 98 MG/DL (<100); NON-HDL-C 130 MG/DL; POTASSIUM SERUM 4.2 MEQ/L (3.5-5.1); SODIUM LEVEL 138 MEQ/L (136-145); TOTAL PROTEIN 7.9 GM/DL (6.4-8.2); TRIGLYCERIDES LEVEL 161 MG/DL (<150)
[2022-05-13 15:50] LABS: HEMOGLOBIN A1c 9.9 %
== END ==
LOC: M PLALAB 12:03
PROVIDERS: ATTEND Internal Medicine Infectious Disease
DX: B20 Human immunodeficiency virus [HIV] disease (principal); E11.9 Type 2 diabetes mellitus without complications

== ENCOUNTER → 2022-09-14 | Outpatient (CLI) | payer MEDICARE ==
[2022-09-14 18:19] LABS: ALBUMIN 4.2 GM/DL (3.2-5.2); ALKALINE PHOSPHATASE 98 U/L (45-117); ALT/SGPT 37 U/L (12-78); AST/SGOT 15 U/L (7-37); BILIRUBIN,TOTAL 0.5 MG/DL (0.2-1.0); BLOOD UREA NITROGEN 8 MG/DL (7-18); CALCIUM LEVEL 9.7 MG/DL (8.5-10.1); CARBON DIOXIDE LEVEL 29 MEQ/L (21-32); CHLORIDE LEVEL 103 MEQ/L (98-107); GLOMERULAR FILTRATION RATE > 60.0 (>56); GLUCOSE, FASTING 110 MG/DL (70-100); SODIUM LEVEL 136 MEQ/L (136-145)
[2022-09-14 20:55] LABS: HEMOGLOBIN A1c 5.8 %
[2022-09-17 02:07] LABS: % CD8 Pos Lymph 70.7 % (12.0-35.5); %CD4 Pos Lymphs 5.1 % (30.8-58.5); ABS Basophils 0.1 x10E3/uL (0.0-0.2); ABS Eosinophils 0.1 x10E3/uL (0.0-0.4); ABS Monocytes 0.7 x10E3/uL (0.1-0.9); ABS Neutophils 2.8 x10E3/uL (1.4-7.0); Abs CD4 Helper 102 /uL (359-1519); Abs CD8 Suppres 1414 /uL (109-897); CD4/CD8 Ratio 0.07 (0.92-3.72); Eosinophils 1 % (Not Estab.); HCT 50.1 % (37.5-51.0); HGB 16.8 g/dL (13.0-17.7); HIV-1 RNA PCR QUANT 2 LC550285 120 copies/mL (.); HIV-1 RNA PCR QUANT 3 LC550285 2.079 (.); Immature Grans 0 % (Not Estab.); Lymphocytes 36 % (Not Estab.); MCH 31.9 pg (26.6-33.0); MCHC 33.5 g/dL (31.5-35.7); MCV 95 fL (79-97); Monocytes 12 % (Not Estab.); Neutrophils 50 % (Not Estab.); Platelets 234 x10E3/uL (150-450); RBC 5.26 x10E6/uL (4.14-5.80); RDW 13.1 % (11.6-15.4); WBC 5.6 x10E3/uL (3.4-10.8)
== END ==
LOC: M WUC 11:24
PROVIDERS: ATTEND Internal Medicine Infectious Disease
DX: B20 Human immunodeficiency virus [HIV] disease (principal); E11.9 Type 2 diabetes mellitus without complications

== ENCOUNTER → 2023-02-08 | Outpatient (CLI) | payer MEDICARE ==
[~2023-02-08] MED LIST changes: -AKWASOL OU; +ARTIDRO2 OU
[2023-02-08 17:49] LABS: ALKALINE PHOSPHATASE 80 U/L (46-116); ALT/SGPT 23 U/L (7.0-40); AST/SGOT 20 U/L (<34); BILIRUBIN,TOTAL 0.4 MG/DL (0.3-1.2); BLOOD UREA NITROGEN 10 MG/DL (9-23); CALCIUM LEVEL 9.1 MG/DL (8.5-10.1); CARBON DIOXIDE LEVEL 31 MMOL/L (20-31); CHLORIDE LEVEL 104 MMOL/L (98-107); GLOMERULAR FILTRATION RATE > 60.0 (>56); GLUCOSE, FASTING 103 MG/DL (60-100); POTASSIUM SERUM 4.5 MMOL/L (3.5-5.1); SODIUM LEVEL 139 MMOL/L (136-145); TOTAL PROTEIN 7.4 G/DL (5.7-8.2)
[2023-02-08 19:11] LABS: HEMOGLOBIN A1c 6.4 % (4.0-6.0)
[2023-02-10 16:09] LABS: % CD8 Pos Lymph 72.7 % (12.0-35.5); ABS Eosinophils 0.1 x10E3/uL (0.0-0.4); ABS Lymphs 1.7 x10E3/uL (0.7-3.1); ABS Monocytes 0.8 x10E3/uL (0.1-0.9); ABS Neutophils 2.7 x10E3/uL (1.4-7.0); Abs CD4 Helper 102 /uL (359-1519); Abs CD8 Suppres 1236 /uL (109-897); CD4/CD8 Ratio 0.08 (0.92-3.72); Eosinophils 2 % (Not Estab.); HCT 49.1 % (37.5-51.0); HGB 16.5 g/dL (13.0-17.7); HIV-1 RNA PCR QUANT 2 LC550285 120 copies/mL (.); HIV-1 RNA PCR QUANT 3 LC550285 2.079 (.); Immature Grans 0 % (Not Estab.); Lymphocytes 32 % (Not Estab.); MCH 31.8 pg (26.6-33.0); MCHC 33.6 g/dL (31.5-35.7); MCV 95 fL (79-97); Monocytes 15 % (Not Estab.); Neutrophils 50 % (Not Estab.); Platelets 239 x10E3/uL (150-450); RBC 5.19 x10E6/uL (4.14-5.80); RDW 12.9 % (11.6-15.4); WBC 5.4 x10E3/uL (3.4-10.8)
== END ==
LOC: M WUC 13:19
PROVIDERS: ATTEND Internal Medicine Infectious Disease
DX: B20 Human immunodeficiency virus [HIV] disease (principal); E11.9 Type 2 diabetes mellitus without complications

== ENCOUNTER → 2023-06-16 | Outpatient (CLI) | payer MEDICARE ==
[2023-06-16 11:20] LABS: ALBUMIN 4.2 G/DL (3.2-5.2); ALKALINE PHOSPHATASE 97 U/L (46-116); ALT/SGPT 37 U/L (7.0-40); AST/SGOT 20 U/L (<34); BILIRUBIN,TOTAL 0.6 MG/DL (0.3-1.2); BLOOD UREA NITROGEN 10 MG/DL (9-23); CALCIUM LEVEL 9.6 MG/DL (8.5-10.1); CARBON DIOXIDE LEVEL 32 MMOL/L (20-31); CHLORIDE LEVEL 102 MMOL/L (98-107); CREATININE FOR GFR 0.81 MG/DL (0.70-1.30); GLOMERULAR FILTRATION RATE > 60.0 (>56); GLUCOSE, FASTING 98 MG/DL (60-100); POTASSIUM SERUM 4.1 MMOL/L (3.5-5.1); SODIUM LEVEL 140 MMOL/L (136-145)
[2023-06-17 16:08] LABS: ABS Basophils 0.1 x10E3/uL (0.0-0.2); ABS Eosinophils 0.1 x10E3/uL (0.0-0.4); ABS Monocytes 0.7 x10E3/uL (0.1-0.9); ABS Neutophils 2.7 x10E3/uL (1.4-7.0); Abs CD4 Helper 100 /uL (359-1519); Abs CD8 Suppres 1400 /uL (109-897); CD4/CD8 Ratio 0.07 (0.92-3.72); Eosinophils 2 % (Not Estab.); HCT 52.1 % (37.5-51.0); HGB 17.7 g/dL (13.0-17.7); HIV-1 RNA PCR QUANT 2 LC550285 <20 copies/mL (.); Immature Grans 0 % (Not Estab.); Lymphocytes 36 % (Not Estab.); MCH 32.4 pg (26.6-33.0); MCV 95 fL (79-97); Monocytes 13 % (Not Estab.); Neutrophils 48 % (Not Estab.); Platelets 209 x10E3/uL (150-450); RBC 5.46 x10E6/uL (4.14-5.80); RDW 13.1 % (11.6-15.4); WBC 5.6 x10E3/uL (3.4-10.8)
== END ==
LOC: M PLAIMG 08:26
PROVIDERS: ATTEND Internal Medicine Infectious Disease
DX: R91.8 Other nonspecific abnormal finding of lung field (principal); B20 Human immunodeficiency virus [HIV] disease

== ENCOUNTER → 2023-12-12 | Outpatient (CLI) | payer MEDICARE ==
[2023-12-12 16:34] LABS: BASO % 0.5 % (0.0-1.0); EOS # 0.1 10^3/uL (0.0-0.5); EOS % 2.2 % (0.0-3.0); HEMATOCRIT 49.5 % (42.0-52.0); HEMOGLOBIN 16.4 g/dl (13.5-17.5); LYMPH # 1.7 10^3/uL (1.5-5.0); LYMPH % 29.1 % (24.0-44.0); MEAN CORPUSCULAR HGB CONC 33.1 g/dl (32.0-36.5); MEAN CORPUSCULAR VOLUME 96.5 fl (80.0-96.0); MONO # 0.7 10^3/uL (0.0-0.8); MONO % 11.9 % (2.0-8.0); NEUTROPHILS # 3.2 10^3/uL (1.5-8.5); PLATELET COUNT, AUTOMATED 203 10^3/uL (150-450); RED BLOOD COUNT 5.13 10^6/uL (4.30-6.10); WHITE BLOOD COUNT 5.8 10^3/uL (4.0-10.0)
[2023-12-12 16:45] LABS: ALBUMIN 3.8 G/DL (3.2-5.2); ALKALINE PHOSPHATASE 68 U/L (46-116); ALT/SGPT 15 U/L (7.0-40); AST/SGOT 15 U/L (<34); BILIRUBIN,TOTAL 0.6 MG/DL (0.3-1.2); BLOOD UREA NITROGEN 12 MG/DL (9-23); CALCIUM LEVEL 8.8 MG/DL (8.5-10.1); CARBON DIOXIDE LEVEL 28 MMOL/L (20-31); CHLORIDE LEVEL 103 MMOL/L (98-107); CHOLESTEROL LEVEL 249 MG/DL (<200); CHOLESTEROL RISK RATIO 6.71 (<5); CREATININE FOR GFR 0.81 MG/DL (0.70-1.30); GLOMERULAR FILTRATION RATE > 60.0 (>56); GLUCOSE, FASTING 90 MG/DL (60-100); HDL CHOLESTEROL 37.1 MG/DL (>40); LDL CHOLESTEROL 187.3 MG/DL (<100); NON-HDL-C 211.9 MG/DL; POTASSIUM SERUM 4.1 MMOL/L (3.5-5.1); PSA SCREENING 1.44 NG/ML (< 4.00); SODIUM LEVEL 136 MMOL/L (136-145); TOTAL PROTEIN 7.6 G/DL (5.7-8.2); TRIGLYCERIDES LEVEL 123 MG/DL (<150)
[2023-12-12 17:02] LABS: HEMOGLOBIN A1c 5.4 % (4.0-6.0)
== END ==
LOC: M PLALAB 12:56
PROVIDERS: ATTEND Physician Assistant
DX: E78.00 Pure hypercholesterolemia, unspecified (principal); I10 Essential (primary) hypertension; E11.9 Type 2 diabetes mellitus without complications; Z12.5 Encounter for screening for malignant neoplasm of prostate
CPT/HCPCS: 36415; 80053; 80061; 83036; 85025; G0103

== ENCOUNTER → 2023-12-12 | Outpatient (CLI) | payer MEDICARE | LOC: M PLALAB 12:59 | PROVIDERS: ATTEND Internal Medicine Infectious Disease | DX: B20 Human immunodeficiency virus [HIV] disease (principal) ==

== ENCOUNTER → 2024-08-13 | Outpatient (CLI) | payer MEDICARE ==
[2024-08-13 15:11] LABS: HEMOGLOBIN A1c 5.4 % (4.0-6.0)
[2024-08-13 15:57] LABS: ALKALINE PHOSPHATASE 74 U/L (46-116); ALT/SGPT 28 U/L (7.0-40); AST/SGOT 19 U/L (<34); BILIRUBIN,TOTAL 0.6 MG/DL (0.3-1.2); BLOOD UREA NITROGEN 12 MG/DL (9-23); CALCIUM LEVEL 9.6 MG/DL (8.3-10.6); CARBON DIOXIDE LEVEL 31 MMOL/L (20-31); CHLORIDE LEVEL 104 MMOL/L (98-107); CHOLESTEROL LEVEL 126 MG/DL (<200); CHOLESTEROL RISK RATIO 3.53 (<5); GLOMERULAR FILTRATION RATE > 60.0 (>49); GLUCOSE, FASTING 80 MG/DL (74-106); HDL CHOLESTEROL 35.6 MG/DL (>40); LDL CHOLESTEROL 71.4 MG/DL (<100); NON-HDL-C 90.4 MG/DL; SODIUM LEVEL 140 MMOL/L (136-145); TOTAL PROTEIN 7.8 G/DL (5.7-8.2); TRIGLYCERIDES LEVEL 95 MG/DL (<150)
[2024-08-14 16:09] LABS: % CD4+ LYMPHS 6.6 % (30.8-58.5); ABSOLUTE CD4 HELPER 145 /uL (359-1519); BASOPHILS 1 % (Not Estab.); EOSINOPHILS 3 % (Not Estab.); EOSINOPHILS ABSOLUTE 0.2 x10E3/uL (0.0-0.4); HCT 50.8 % (37.5-51.0); HGB 16.5 g/dL (13.0-17.7); LYMPHOCYTES 36 % (Not Estab.); LYMPHOCYTES ABSOLUTE 2.2 x10E3/uL (0.7-3.1); MCH 31.1 pg (26.6-33.0); MCHC 32.5 g/dL (31.5-35.7); MCV 96 fL (79-97); MONOCYTES 14 % (Not Estab.); MONOCYTES ABSOLUTE 0.8 x10E3/uL (0.1-0.9); NEUTROPHILS 46 % (Not Estab.); NEUTROPHILS ABSOLUTE 2.8 x10E3/uL (1.4-7.0); PLT 226 x10E3/uL (150-450); RBC 5.31 x10E6/uL (4.14-5.80); RDW 12.8 % (11.6-15.4); WBC 6.1 x10E3/uL (3.4-10.8)
[2024-08-16 15:08] LABS: HIV-1 RNA PCR QUANT 2 NOT DETECTED copies/mL (NOT DETECTED); HIV-1 RNA PCR QUANT 3 NOT DETECTED (NOT DETECTED)
== END ==
LOC: M PLALAB 11:45
PROVIDERS: ATTEND Internal Medicine Infectious Disease
DX: B20 Human immunodeficiency virus [HIV] disease (principal); E11.9 Type 2 diabetes mellitus without complications

== ENCOUNTER → 2025-03-26 | Outpatient (CLI) | payer MEDICARE ==
[2025-03-27 12:16] LABS: HIV-1 RNA PCR QUANT 2 31 copies/mL (NOT DETECTED); HIV-1 RNA PCR QUANT 3 1.49 (NOT DETECTED)
== END ==
LOC: M PLALAB 11:57
PROVIDERS: ATTEND Internal Medicine Infectious Disease
DX: B20 Human immunodeficiency virus [HIV] disease (principal)

== ENCOUNTER → 2025-03-26 | Outpatient (CLI) | payer MEDICARE ==
[2025-03-26 14:15] LABS: HEMATOCRIT 47.8 % (42.0-52.0); HEMOGLOBIN 15.7 g/dl (13.5-17.5); MEAN CORPUSCULAR HEMOGLOBIN 31.1 pg (27.0-33.0); MEAN CORPUSCULAR HGB CONC 32.8 g/dl (32.0-36.5); MEAN CORPUSCULAR VOLUME 94.7 fl (80.0-96.0); PLATELET COUNT, AUTOMATED 212 10^3/uL (150-450); RED BLOOD COUNT 5.05 10^6/uL (4.30-6.10); WHITE BLOOD COUNT 4.6 10^3/uL (4.0-10.0)
[2025-03-26 14:34] LABS: HEMOGLOBIN A1c 5.4 % (4.0-6.0)
[2025-03-26 14:50] LABS: CREATININE, URINE 80.9 MG/DL; MAU/CREAT RATIO 4.9 MCG/MG (0.0-30.0)
[2025-03-26 14:51] LABS: ALBUMIN 4.1 G/DL (3.2-5.2); ALKALINE PHOSPHATASE 57 U/L (40-129); ALT/SGPT 14 U/L (7.0-40); AST/SGOT 14 U/L (<34); BILIRUBIN,TOTAL 0.4 MG/DL (0.3-1.2); BLOOD UREA NITROGEN 11 MG/DL (9-23); CALCIUM LEVEL 9.5 MG/DL (8.3-10.6); CARBON DIOXIDE LEVEL 30 MMOL/L (20-31); CHLORIDE LEVEL 102 MMOL/L (98-107); CREATININE FOR GFR 0.74 MG/DL (0.70-1.30); GLOMERULAR FILTRATION RATE > 90.0 (>49); GLUCOSE, FASTING 74 MG/DL (74-106); POTASSIUM SERUM 4.1 MMOL/L (3.5-5.1); SODIUM LEVEL 139 MMOL/L (136-145); TOTAL PROTEIN 7.5 G/DL (5.7-8.2)
== END ==
LOC: M PLALAB 11:54
PROVIDERS: ATTEND Nurse Practitioner Family
DX: E11.9 Type 2 diabetes mellitus without complications (principal)

== ENCOUNTER → 2025-09-23 | Outpatient (CLI) | payer MEDICARE ==
[2025-09-23 14:42] LABS: ESTIMATED AVERAGE GLUCOSE 120.0 MG/DL (60-110)
[2025-09-23 15:20] LABS: ALT/SGPT 20 U/L (7.0-40); AST/SGOT 23 U/L (<34); CALCIUM LEVEL 9.6 MG/DL (8.3-10.6); CARBON DIOXIDE LEVEL 30 MMOL/L (20-31); CHLORIDE LEVEL 100 MMOL/L (98-107); CHOLESTEROL LEVEL 151 MG/DL (<200); CHOLESTEROL RISK RATIO 3.47 (<5); CREATININE FOR GFR 0.75 MG/DL (0.70-1.30); GLOMERULAR FILTRATION RATE > 90.0 (>49); LDL CHOLESTEROL 90.2 MG/DL (<100); NON-HDL-C 107.6 MG/DL; POTASSIUM SERUM 4.0 MMOL/L (3.5-5.1); PSA SCREENING 2.71 NG/ML (< 4.00); SODIUM LEVEL 139 MMOL/L (136-145); TRIGLYCERIDES LEVEL 87 MG/DL (<150)
== END ==
LOC: M PLALAB 11:12
PROVIDERS: ATTEND Internal Medicine Infectious Disease
DX: B20 Human immunodeficiency virus [HIV] disease (principal); E11.9 Type 2 diabetes mellitus without complications; Z12.5 Encounter for screening for malignant neoplasm of prostate
CPT/HCPCS: 36415; 80053; 80061; 83036; 86360; 87536; G0103